=== PATIENT | male | born 1940 | race Caucasian/White ===

== ENCOUNTER 2025-08-31 09:16 | Inpatient (IN) | payer MEDICARE, MEDICAID, SELFPAY ==
[2025-08-31] VITALS (8 sets, daily range): BP systolic 145–184; BP diastolic 76–95; PULSE 71–88; RESP 17–18; TEMP 36.4–36.9; O2SAT 95–100; BMI 21.4
--- NOTE | ~2025-08-31 | US_ITS ---
LEFT LOWER EXTREMITY VENOUS DUPLEX Clinical History: swelling COMPARISON: None TECHNIQUE: Grayscale, color, duplex/spectral Doppler sonography left leg FINDINGS: Left leg common femoral, femoral, popliteal, and calf veins compressible and color Doppler patent. Normal augmentation with distal compression. No internal echoes. IMPRESSION: 1. No left leg DVT. Reviewed, dictated and finalized at location R. CUTTER IMPRESSION: 1. No left leg DVT.
--- NOTE | ~2025-08-31 | XR_ITS ---
Intraoperative images, fluoroscopy time 5 minutes 16 seconds Reviewed, dictated and finalized at location P. PMENT DETAILER
--- NOTE | ~2025-08-31 | CT_ITS ---
EXAM/PROCEDURE: CT hip LT wo con HISTORY: fracture, sclerotic lesion eval COMPARISON: None available. TECHNIQUE: Left hip CT FINDINGS: Slightly impacted obliquely oriented subcapital femoral neck fracture with slight valgus angulation. In the intertrochanteric region, benign-appearing 3.9 x 4.6 x 2.8 cm bubbly, nonexpansile partially cystic mass is present. The inferior margin of the mass is approximately 2.0 cm removed from the fracture lucency. The femoral acetabular articulation is preserved. No other fracture seen. Advanced degenerative changes in the visualized lumbar spine. Soft tissue swelling/edema and probable small hematoma in the area of the fracture with no large hematoma seen. Severe diverticular disease noted in the intrapelvic contents. IMPRESSION: 1. Mildly impacted subcapital femoral neck fracture. 2. Intertrochanteric intramedullary benign-appearing mass possibly representing chondroid lesion, enchondroma or ABC. The fracture does not directly involve this lesion, however the superior margin of the lesion is within about 2 cm of the fracture. Reviewed, dictated and finalized at location A. CE EQUIPMENT TECHNICIAN IMPRESSION: 1. Mildly impacted subcapital femoral neck fracture. 2. Intertrochanteric intramedullary benign-appearing mass possibly representing chondroid lesion, enchondroma or ABC. The fracture does not directly involve t his lesion, however the superior margin of the lesion is within about 2 cm of t he fracture.
--- NOTE | ~2025-08-31 | XR_ITS ---
EXAMINATION: XR chest 1V portable COMPARISON: No comparisons available. HISTORY: Pre-surgery FINDINGS: There are bilateral infiltrates most marked in the right upper and right lower lobes. No pneumothorax. Heart is normal size. Mediastinal and hilar contours are within normal limits. Bony thorax no acute abnormality. Miscellaneous: None Impression: Probable early pneumonia Reviewed, dictated and finalized at location P. NEERING TECHNICIAN Impression: Probable early pneumonia
--- NOTE | ~2025-08-31 | XR_ITS ---
EXAMINATION: XR hip LT 2V w AP pelvis, 08/31/2025 10:28 INFORMATION SYSTEMS SECURITY ANALYST HISTORY: LT HIP PAIN FOR 2 WKS COMPARISON: No comparisons available. Findings: There is a nondisplaced fracture of the proximal left femoral neck. Within the proximal left femur there is a large sclerotic lesion measuring 2 x 2 cm incompletely assessed, no additional lesions identified. No additional fracture. Severe degenerative changes. Soft tissues unremarkable. Impression: Fractures detailed above. Sclerotic lesion, there is a prior history of neoplasm metastasis is not excluded. Nuclear medicine bone scan suggested Reviewed, dictated and finalized at location P. RMATION SYSTEMS SECURITY ANALYST Impression: Fractures detailed above. Sclerotic lesion, there is a prior history of neoplas m metastasis is not excluded. Nuclear medicine bone scan suggested
[2025-08-31 09:47] LABS: Hematocrit 36.0 % (42.0-52.0); Hemoglobin 11.6 g/dL (14.0-18.0); Immature Granulocyte Percent A 0.7 % (0-0.5); Lymphocytes Absolute Auto 1.06 K/mm3 (0.9-3.2); Mean Corpuscular HGB Conc 32.2 g/dl (32-36); Mean Corpuscular Hemoglobin 31.7 pg (26-34); Mean Corpuscular Volume 98.4 fl (80-100); Nucleated Red Blood Cells Absolute Auto 0.000 K/mm3 (0.0-0.012); Nucleated Red Blood Cells Perc 0.0 % (0.0-0.2); Platelet Count Result 292 k/mm3 (150-375); Red Blood Count 3.66 M/mm3 (4.6-6.20); White Blood Count 12.0 K/mm3 (4.5-10.0)
--- OUTSIDE RECORDS SUMMARY | 2025-08-31 09:47 | XMS_ITS | Clinical Summary ---
Author Organization [facility] Address [address] [place] [address] Phone Care Team Providers Care Catalyst Concentration Operator Name Role Phone Felix Rosa MD Primary Care Provider + Allergies No known active allergies Medications furosemide (LASIX) 20 MG TabletIndication s:stated he uses for swelliing in feet as needed. Take 20 mg by mouth daily as needed. Indications: stated he uses for swelliing in feet as needed. Active meclizine (ANTIVERT) 25 MG Tablet Take 25 mg by mouth 3 times daily as needed. Active lisinopril (PRINIVIL, ZESTRIL) 40 MG Tablet Take 40 mg by mouth every morning. Active ferrous sulfate 325 (65 Fe) MG Tablet Take 325 mg by mouth daily. Active pantoprazole (PROTONIX) 40 MG Tablet Delayed Response Take 40 mg by mouth daily. Active atorvastatin (LIPITOR) 80 MG Tablet Take 80 mg by mouth nightly. Active aspirin EC 81 MG Tablet Delayed Response Take 81 mg by mouth daily. Active metoprolol tartrate (LOPRESSOR) 25 MG Tablet Take 25 mg by mouth 2 times daily. Active amLODIPine (NORVASC) 10 MG Tablet Take 10 mg by mouth daily. Active SODIUM BICARBONATE PO Take 1,300 mg by mouth 3 times daily. Active Multiple Vitamin (MULTIVITAMIN PO) Take by mouth daily. Active Ascorbic Acid (Vitamin C) 1000 MG Tablet Take by mouth daily. Active Cholecalciferol (VITAMIN D3 PO) Take 2,000 Units by mouth daily. Active Active Problems No known active problems Immunizations Immunization Administration Dates Next Due Covid-19, Mrna, Lnp-s, Pf, 3 0 Mcg/0.3 Ml Dose ([employer]) 08/04/2021,01/03/2021,12/06/2020 Family History Medical History Relation Name Comments Cancer Mother breast Relation Name Status Comments Father Mother Social History Tobacco Use Types Packs/Day Years Used Date Smoking Tobacco: Former Cigarettes 1 Q uit: 1979 Smokeless Tobacco: Never Alcohol Use Standard Drinks/Week Comments Not Currently 0 (1 standard drink = 0.6 oz pur e alcohol) Sex and Gender Information Value Date Recorded Sex Assigned at Not on file Legal Sex Male 8:11 PM CDT Gender Identity Not on file Sexual Orientation Not on file Last Filed Vital Signs Vital Sign Reading Time Taken Comments Blood Pressure 133/89 12/08/2021 11:02 AM [employer] Pulse 68 12/08/2021 11:02 AM [employer] Temperature 36 C (96.8 F) 12/08/2021 11:02 AM [employer] Respiratory Rate 16 12/08/2021 11:02 AM [employer] Oxygen Saturation 97% 12/08/2021 11:02 AM [employer] Inhaled Oxygen Concentration - - Weight 95.3 kg (210 lb) 12/08/2021 9:49 AM [employer] Height 193 cm (6' 4) 12/08/2021 9:49 AM [employer] Body Mass Index 25.56 12/08/2021 9:49 AM [employer] Plan of Treatment Health Maintenance Due Date Last Done Comments Hepatitis C Virus (HCV) Screening 1940 Varicella Immunization (1 of 2 - 13+ 2-dose series) 12[birth year]28/1953 Medicare Initial AWV [id number] 12/09/2004 Respiratory Syncytial Virus (RSV) Immunization (Adult) (1 - 1-dose 75+ series) 2013 Influenza Immunization (#1) 06/11/202507/11, 07/02/2020, 07/02/2020, Additional history exists SARS-COV-2 Immunization (2024- season) 2025 08/04/2021, 01/03/2021, 12/06/2020 DTaP/Tdap/Td Immunization Discontinued 01/14/2017 TdaP Immunization Completed 01/14/2017 Pneumococcal Immunization (50+ years) Completed 09/12/2019, 01/14/2017 Zoster Immunization Completed 11/14/2019, 9 Hepatitis B Immunization Aged Out No longer eligible based on patient's age to complete this topic Human Papillomavirus (HPV) Immunization Aged Out No longer eligible based on patient's age to complete this topic Meningococcal Immunization (ACWY) Aged Out No longer eligible based on patient's age to complete this topic Rotavirus Immunization Aged Out No lo nger eligible based on patient's age to complete this topic Medical Devices Implanted Type Area Microbial Specialist Device Identifier Shelf Expiration Date Model / Serial / Lot [id number] Implanted:Qty: 1 on 09/29/2021 by Felix Mitchell MD at [facility] Right: Eye Thien Thien 08/23/2024 [id number] / [id number] / [id number] Left Intraocular Lens Implanted:Qty: 1 on 12/08/2021 by Felix Mitchell MD at [facility] Left: Eye [employer] [facility] 09/21/2024 [id number] / [id number] / [id number] [place] [address] MEDICARE [facility] Care Teams Catalyst Concentration Operator Relationship Specialty Start Date End Date Felix Rosa MD [address] [facility] [address] [place] [address] PCP - General Endocrinology 09/29/21
--- OUTSIDE RECORDS SUMMARY | 2025-08-31 09:47 | XMS_ITS | Clinical Summary ---
Author Organization [facility] Address [address] [place] [address] Care Team Providers Care Biology Tutor Name Role Phone Felix Rosa MD Unavailable [phone] Felix Rosa MD Primary Care Provider + Harriett Ernandez PT Unavailable Unavailable Medina Ha PTA Unavailable Unavailable Allergies No known active allergies Medications multivitamin capsule Take 1 capsule by mouth daily Active acetaminophen (TYLENOL) 500 mg tabletIndicatio ns:Pain Take 2 tablets (1,000 mg total) by mouth every 6 (six) hours 30 tablet 02/08/20 21 Active ferrous sulfate 325 mg (65 mg of elemental iron) tabletIndicatio ns:Iron Deficiency Anemia Take 1 tablet (325 mg total) by mouth daily with breakfast Active aspirin 81 mg enteric coated tablet TAKE 1 TABLET BY MOUTH EVERY DAY. DO NOT STARTUNTIL. MARCH 04 30 tablet 3 10/09/20 22 Active freestyle 28 gauge lancets Test blood sugar twice daily 200 each 3 03/22/20 23 Active blood-glucose meter kit Use to test blood glucose 1 kit 04/02/20 23 Active atorvastatin (LIPITOR) 80 mg tablet TAKE 1 TABLET(80 MG) BY MOUTH DAILY 90 tablet 3 05/20/20 23 Active FreeStyle Lite Strips strip USE TO TEST TWICE DAILY 100 strip 3 03/14/20 24 Active furosemide (LASIX) 20 mg tablet TAKE 1 TABLET(20 MG) BY MOUTH DAILY NEEDED FOR LEG SWELLING 90 tablet 10/23/19 25 Active Additional Information Patient taking differently: As needed, Reported on 04/25/2025 memantine (NAMENDA) 5 mg tablet Take 1 tablet (5 mg total) by mouth 2 (two) times a day 90 tablet 3 03/16/20 25 Active sodium bicarbonate 650 mg tablet Take 1 tablet (650 mg total) by mouth 2 (two) times a day 180 tablet 1 05/17/20 25 026 Active lisinopriL (PRINIVIL,ZESTR IL) 40 mg tablet Take 1 tablet (40 mg total) by mouth daily 90 tablet 3 07/10/20 25 Active metoprolol tartrate (LOPRESSOR) 25 mg immediate release tablet TAKE 1 TABLET BY MOUTH TWICE DAILY 180 tablet 3 08/13/20 25 Active amLODIPine (NORVASC) 10 mg tablet TAKE 1 TABLET BY MOUTH DAILY 90 tablet 3 08/13/20 25 Active metoprolol tartrate (LOPRESSOR) 25 mg immediate release tablet TAKE 1 TABLET BY MOUTH TWICE DAILY 180 tablet 3 08/08/20 24 025 Discontinued amLODIPine (NORVASC) 10 mg tablet TAKE 1 TABLET BY MOUTH DAILY 90 tablet 3 08/08/20 24 025 Discontinued Active Problems Patient Care Coordination No te Formatting of this note migh t be different from the original. This patient has enrolled in the [facility]patient Program ([facility]). Assigned [facility] Hr Assistant and Phone: Lilly Bradley/[phone]. Date Enrolled in Program: April 26, 2018. 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 Continue with memantine 5 BID. Agree with adult day care. Reconnect with JORDAN/ Radha Taveras.to discuss: --Compassionate allowance dx, disability --Medicaid application, memory care Provided X&Y dialogue article. Memory loss 11/10/2022 Overview (11/10/2022): check labs, SLUMS 10, consult neurology Assessment & Plan (01/25/2023 3:45 PM CDT): Dx: Dementia with Lewy Bodies Already not taking Quetiapine, Donepezil, Memantine Restart Memantine at 5mg every night. Will plan to increase every week to 10mg twice daily. Check Head CT Check TSH, fT4 Agitation 11/10/2022 Overview (11/10/2022): check labs, SLUMS 10, consult neurology Unspecified sequelae of cerebral infarction 04/12 Difficulty balancing 03/17/2021 Impaired cognition 03/17/2021 Leukocytosis 02/11/2021 Gastrointestinal hemorrhage 02/11/2021 Overview (02/12/2021): Added automatically from request for surgery [id number] At risk for venous thromboembolism (VTE) 021 Overview (03/17/2021): Problem added by Discern Expert Rule: EBN_VTERISKPROB_3 Acute pain due to trauma 02/03/2021 Closed fracture of right hip 02/02/2021 Metabolic acidosis 09/02/2018 Renal osteodystrophy 09/02/2018 Anemia in stage 4 chronic kidney disease 018 Coronary artery disease invo lving [place] coronary artery of [place] heart without angina pectoris 05/24/2018 Abnormal chest x-ray 04/24/2018 Assessment & Plan (04/27/2018 8:04 AM CDT): - Possible lung nodule noted on CXR as OSH, read as difficult to exclude lung nodule vs atlectasis - Given smoking history patient likely candidate for Chest CT lung screening - Can be pursued as outpatient Assessment & Plan (04/25/2018 12:21 PM CDT): - Possible lung nodule noted on CXR as OSH, read as difficult to exclude lung nodule vs atlectasis - Given smoking history patient likely candidate for Chest CT lung screening - Can be pursued as outpatient Assessment & Plan (04/24/2018 10:15 PM CDT): - Possible lung nodule noted on CXR as OSH. Will repeat PA/lat here NSTEMI (non-ST elevated myocardial infarction) 0 04/23/2018 Assessment & Plan (04/27/2018 8:01 AM CDT): -LHC yesterday with 90% LPL lesion s/p VIDAL x1. -Will see if patients insurance covers brillinta. If not will reload with plavix and continue 75mg qday -EKG with 1st degree AV block, subsequent EKG with PVCs, but no significant ST elevations/depressions -Troponin peaked at 10->9 In patient with typical angina and multiple risk factors for CAD -No further chest pain since admission -Cardiology consulted appreciate [facility]'s -Continue ASA, metoprolol Assessment & Plan (04/26/2018 10:17 AM CDT): EKG with 1st degree AV block, subsequent EKG with PVCs, but no significant ST elevations/depressions Troponin peaked at 10->9 In patient with typical angina and multiple risk factors for CAD -No further chest pain since admission -Cardiology consulted appreciate recc's -Plan for [facility] today -Continue to monitor on telemetry -Continue ASA, metoprolol and heparin gtt. SL nitro PRN for chest pain, though he has not required any since admission Assessment & Plan (04/25/2018 12:01 PM CDT): EKG with 1st degree AV block, subsequent EKG with PVCs, but no significant ST elevations/depressions Troponin peaked at 10->9 In patient with typical angina and multiple risk factors for CAD -Cardiology consulted and will cath this admission -Continue to monitor on telemetry -Continue ASA, metoprolol and heparin gtt. SL nitro PRN for chest pain, though he has not required any since admission Assessment & Plan (04/27/2018 12:45 PM CDT): Patient presented with unstable angina in the context of exertional chest pain not relieved by rest but with sublingual nitroglycerin. His history is c/w ACS, now with a downtrending troponin from 10.25 to 9.04. Given this patient's age and history of diabetes with extensive prior smoking history, this patient has a high pretest probability of a coronary event. Currently patient is chest pain-free. [facility] 04/27 with 90% LPL s/p VIDAL x1 - ASA indefinitely - OK with Brilinta if insurance covers, otherwise Plavix - Touch base with renal for following contrast induced nephropathy as outpatient, may need labs in a few days - Schedule follow up cardiology appointment at the [facility] for discharge, thank you for the consultation Assessment & Plan (04/24/2018 10:14 PM CDT): - Elevated troponin with typical anginal pain that resolved with nitro. JOANIE 5 (RFs, age, ASA, severe angina, + biomarker) - No current CP, s/s CHF, electrical instability - Cont ASA, statin, beta brandon, and heparin gtt. PRN SLNG for CP - Trend trops and EKG - Accepted by Cards, c/s in the AM for [facility]. Cont hydration. NPO @ AR Assessment & Plan (04/23/2018 10:27 PM CDT): Chest pain completely resolved after 2 nitroglycerin. Troponins trending up from 0.02 to 0.21. Continue to monitor. EKG showed sinus rhythm with a first-degree AV block. Will start patient on a heparin drip. Will consult Cardiology. Will continue nitropaste 1 in q.6 hours. Patient does not have headache. Will start patient on 81 mg aspirin daily and change statin to Lipitor. Will check a fasting lipid panel. Continue monitor on tele. Essential hypertension 04/23/2018 Assessment & Plan (04/27/2018 8:04 AM CDT): - Previously on lisinopril and amlodipine - Will cont amlodipine and titrate beta brandon. - Hold BRUNA-I given acute on chronic kidney injury. Likely can be started in outpatient setting with renal follow up Assessment & Plan (04/26/2018 10:20 AM CDT): - Previously on lisinopril and amlodipine - Will cont amlodipine and titrate beta brandon. - Hold BRUNA-I given acute on chronic kidney injury Assessment & Plan (04/25/2018 12:02 PM CDT): - Previously on lisinopril and amlodipine - Will cont amlodipine and titrate beta brandon. - Hold BRUNA-I given unclear if current creatinine represents MIMI on CKD Assessment & Plan (04/25/2018 11:03 AM CDT): Currently normotensive on his home regimen. - Management per primary team Assessment & Plan (04/24/2018 10:10 PM CDT): - Previously on lisinopril and amlodipine - Will cont amlodipine and titrate beta brandon. Hold BRUNA-I Assessment & Plan (04/23/2018 10:21 PM CDT): Currently normotensive. Will continue amlodipine with hold parameters. Will hold lisinopril for now until we can confirm creatinine is stable. Continue to monitor. HLD (hyperlipidemia) 04/23/2018 Assessment & Plan (04/27/2018 8:04 AM CDT): - Continue atorvastatin Assessment & Plan (04/26/2018 10:20 AM CDT): - Continue atorvastatin Assessment & Plan (04/24/2018 10:10 PM CDT): - Home simva changed to atorvastatin 80mg Assessment & Plan (04/23/2018 10:20 PM CDT): Patient was on Zocor which we will discontinue. Will start Lipitor. Will check a fasting lipid panel. CRD (chronic renal disease), stage IV 04/23/2018 Assessment & Plan (04/27/2018 8:02 AM CDT): Acute on chronic CKD in setting of HTN and DM2 - Last Cr in [facility] system shows Cr of 1.18 in 2010 and now presents with 2.3 on admission - Renal u/s with echogenic kidneys consistent with parenchymal disease - Renal consulted for guidance given need for LHC. Pt was prehydrated w/ 1cc/kg NS, given NAC prior to and after LHC - Cr mildly improved from 2.3 on admission to 2.25 today - Will set up outpatient renal follow up Assessment & Plan (04/26/2018 10:19 AM CDT): Acute on chronic CKD in setting of HTN and DM2 - Last Cr in [facility] system shows Cr of 1.18 in 2010 and now presents with 2.3 on admission - Renal u/s with echogenic kidneys consistent with parenchymal disease - Renal consulted for guidance given need for LHC - Will prehydrate w/ 1cc/kg NS, also will give NAC prior to and after LHC - Appreciate renal recc's Assessment & Plan (04/25/2018 11:58 AM CDT): - Patient reports being told by PCP that his kidney function was abnormal about a year ago - Last Cr in [facility] system shows Cr of 1.18 in 2010 and now presents with 2.3 on admission - CKD likely 2/2 diabetes and hypertension though both seem reasonably well controlled - Denies frothy urine, decrease urination or sediment. - Renal u/s with echogenic kidneys consistent with parenchymal disease - Will attempt to see if there are any OSH from the past year that show baseline creatinine closer to his presenting Cr, which would help us know if this is an MIMI on CKD -Will likely require pre-hydration prior to cath pending cardiology final recc's Assessment & Plan (04/25/2018 11:02 AM CDT): Unknown baseline renal function presenting with creatinine 2.31 (last 1.18 in 2010) with most recent kidney ultrasound (04/25/2018) revealed echogenic kidneys c/w parenchymal disease - If possible, please obtain any prior lab results - Will continue to monitor his trend Assessment & Plan (04/24/2018 10:09 PM CDT): - Known abnormal kidney function x 1 year. Given comorbidities, likely HTN/DM related but no work up yet - UA, pro/Cr, renal US. Not reported any urinary symptoms. - Will need to ensure adequate volume prior to any cath considerations - I&Os Assessment & Plan (04/23/2018 10:21 PM CDT): Patient was recently referred to a derrick boat lever operator at [place] by his PCP. His 1st appointment is May 06. Patient is not sure what his creatinine is normally. Will hold lisinopril until we are able to confirm that creatinine is stable. Normocytic anemia 04/23/2018 Assessment & Plan (04/27/2018 8:03 AM CDT): - Unclear etiology, may be related to renal disease though CKD not particularly longstanding - Possibly mixed picture given mildly iron deficient, but ferritin of 51. - B12, wnl, MCV wnl. If never had c-scope pt should undergo screening. If he has already previously had normal c-scope, he is out of window for screening Assessment & Plan (04/24/2018 10:11 PM CDT): - Unclear etiology, may be related to renal disease though CKD not particularly longstanding - Will check iron studies, B12 to r/o mixed picture (unlikely given RDW). No bleeding, up to date on colonoscopy Assessment & Plan (04/23/2018 10:22 PM CDT): Patient denies any bleeding anywhere. Suspect may be related to kidney disease. Will continue to monitor. Type 2 diabetes mellitus, [facility] current use of insulin 04/23/2018 Assessment & Plan (07/18/2020 1:20 PM CDT): Continue diet Assessment & Plan (04/27/2018 8:02 AM CDT): Previously on metformin, but has been discontinued several months ago, and is currently diet controlled HgbA1C 6.4 - Cont accuchecks and SSI - Cont Diabetic diet and exercise Assessment & Plan (04/26/2018 10:19 AM CDT): Previously on metformin, but has been discontinued several months ago, and is currently diet controlled HgbA1C 6.4 - Cont accuchecks and SSI - Diabetic diet after NPO dc'd Assessment & Plan (04/25/2018 12:01 PM CDT): Previously on metformin, but has been discontinued several months ago, and is currently diet controlled HgbA1C 6.4 - Cont accuchecks and SSI - Diabetic diet Assessment & Plan (04/25/2018 11:02 AM CDT): Patient has longstanding DM2 which is well controlled with out insulin or oral hypoglycemics. His last A1c was 6.4%. - Management per primary team Assessment & Plan (04/24/2018 10:09 PM CDT): - Only ever on orals. A1c 6.4 - Cont accuchecks and SSI Assessment & Plan (04/23/2018 10:24 PM CDT): Patient states he used to be on metformin however his PCP discontinued due to his kidneys. He is unsure what he is on currently but it is a pill. Will place patient on a low-dose sliding scale and continue to monitor. Encounters Date Type Department Care Team Description 08/29/2025 Orders Only [facility] NE[facility] Scanning, Provider 08/16/2025 Telephone [facility] [address] [place] [id number] Felix Rosa MD 08/02/2025 12:34 PM CDT - 08/02/2025 11:59 PM CDT Hospital Encounter [facility] [address] [place] [id number] Coronary artery disease involving [place] coronary artery of [place] heart without angina pectoris Discharge Disposition: Discharge to home or self care 07/31/2025 Telephone [facility] [address] [facility] [place] [address] Guru Zuniga MSW 07/09/2025 Telephone [facility] [address] [place] [address] Shanell Taveras RN 07/04/2025 Orders Only [facility] [address] [place] [address] Sugey West MD PhD Coronary artery disease involving [place] coronary artery of [place] heart without angina pectoris (Primary Dx) 06/19/2025 Telephone [facility] [address] [place] [address] Shanell Taveras, RN 06/18/2025 Telephone [facility] [address] [place] [address] Shanell Taveras, RN 06/18/2025 Telephone [facility] [address] [place] [address] Shanell Taveras, RN 06/18/2025 Telephone [facility] [address] [place] [address] Shanell Taveras, RN 06/06/2025 Telephone [facility] [address] [place] [address] Shanell Taveras, RN 06/06/2025 Telephone [facility] [address] [place] [address] Shanell Taveras, RN from Last 3 Months Immunizations Immunization Administration Dates Next Due Influenza, Quad, Adjuvantate d, Intramuscular 07/02/2020 Influenza, Quadrivalent, Spl it, Intramuscular 11/13/2016 Influenza, Quadrivalent, Spl it, Preservative Free, Intramuscular 07/28/2017 Influenza, Trivalent, High D ose, Split, Preservative Free, Intramuscular 07/31/2019 Influenza, Trivalent, IM (MDV) 07/15/2015,2013,09/11/2013 Pfizer SARS-CoV-2 Monovalent Vaccination (12+ Yrs) PURPLE 08/04/2021,01/03/2021,12/06/2020 ZOSTER Recombinant 11/14/2019,08/18/2019 Surgical History Surgery Date Site/Laterality Comments REPLACEMENT TOTAL KNEE BILATERAL 10/11/2010 - 10/10/2011 Bilateral CARDIAC STENT PLACEMENT 04/10/2018 - 05/10/2018 COLONOSCOPY PARTIAL HIP ARTHROPLASTY 10/11/2020 - 10/10/2021 N/A Medical History Medical History Date Comments Hypertension Hyperlipidemia Diabetes mellitus Chronic kidney disease Type 2 diabetes mellitus Coronary artery disease NSTEMI (non-ST elevated myocardial infarction) ( HCC) Bilateral lower extremity edema Family History Medical History Relation Name Comments Breast cancer Daughter Cancer Mother Breast cancer Sister Anesthesia problems Neg Hx Relation Name Status Comments Daughter Mother Sister Social History Tobacco Use Types Packs/Day Years Used Date Smoking Tobacco: Former Cigarettes 2 30 1 956 - 10/11/1984 Smokeless Tobacco: Never Tobacco Cessation:Counseling Given: Not Answered Alcohol Use Standard Drinks/Week Comments No 0 (1 standard drink = 0.6 oz pur e alcohol) Social Connection and Isolation Panel Answer Date Recorded In a typical week, how many times do you talk on the phone with family, friends, or neighbors? More than three times a week 02/12/2021 How often do you get togethe r with friends or relatives? More than three times a week 02/12/2021 How often do you attend chur ch or jewish services? Never 02/12/2021 Do you belong to any clubs o r organizations such as mandaen groups, unions, fraternal or athletic groups, or school groups? No 02/12/2021 How often do you attend meet ings of the clubs or organizations you belong to? 1 to 4 times per year 02/12/2021 Are you , , di vorced, , never , or living with a partner? 02/12/2021 AUDIT-C Answer Date Recorded Q1: How often do you have a drink containing alc ohol? Never 02/03/2021 Average Number of Drinks Not on file 021 Q3: How often do you have si x or more drinks on one occasion? Never 02/03/2021 Overall Financial Resource Strain (CARDIA) Answe r Date Recorded How hard is it for you to pa y for the very basics like food, housing, medical care, and heating? Not hard at all 02/12/2021 PHQ-2 Answer Date Recorded PHQ-2 Total Score (If total score is 3 or more points, staff should administer the PHQ-9) 0 02/14/2021 PRAPARE - Transportation Answer Date Re corded In the past 12 months, has l ack of transportation kept you from medical appointments or from getting medications? No 02/2021 In the past 12 months, has l ack of transportation kept you from meetings, work, or from getting things needed for daily living? 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 Gender Identity Not on file Sexual Orientation Not on file Last Filed Vital Signs Vital Sign Reading Time Taken Comments Blood Pressure 140/85 04/25/2025 11:13 AM CDT Pulse 62 04/25/2025 11:13 AM CDT Temperature 37 C (98.6 F) 07/12/2024 2:27 PM CDT Respiratory Rate 20 07/12/2024 2:27 PM CDT Oxygen Saturation 98% 04/25/2025 11:13 AM CDT Inhaled Oxygen Concentration - - Weight 76.2 kg (168 lb) 04/25/2025 11:13 AM CDT Height 193 cm (6' 4) 04/25/2025 11:13 AM CDT Body Mass Index 20.45 04/25/2025 11:13 AM CDT Plan of Treatment Health Maintenance Due Date Last Done Comments Albumin Creatinine Ratio, Urine 1938 Dilated Eye Exam 1938 Foot Exam 1938 DTaP/Tdap/Td Vaccine (1 - Tdap) 1949 Hepatitis B Screening 1956 Pneumococcal vaccine 65+ (1 of 2 - PCV) 1957 Well Visit 65+ 12/28/2003 Depression Screening 02/11/2022 02/11/2021 Fall Risk Assessment 02/18/2022 02/18/2021 Covid-19 Vaccine (4 - 2024-2 6 season) 2025 08/04/2021, 01/03/2021, 12/06/2020 Influenza Vaccine (#1) 2025 , 07/31/2019, 07/28/2017, Additional history exists Lipid Panel 07/20/2025 07/20/2024, 10/11, 03/31/2021, Additional history exists Hemoglobin A1C 10/26/2025 04/25/2025, 07/11, 01/18/2024, Additional history exists eGFR 04/20/2026 04/20/2025, 110 05/2024, 07/20/2024, Additional history exists Zoster Vaccine Completed 11/14/2019, 08/18/2019 Medical Devices Implanted Type Area Flour Worker Device Identifier Shelf Expiration Date Model / Serial / Lot Hardware Bilater al: Knee [employer] [id number] Synergy 2.5mm 16mm 144cm Radiopaque 1 Access Port Inflation Lumen - [id number] Implanted:Qty: 1 on 04/26/2018 by Dinesh Gomes MD at [facility] [employer] Elena 11/29/2018 [id number] / / [id number] [employer] 6191-1-010 Simplex P Radiopaque Full Dose Cement Bone Sterile - [id number] Implanted:Qty: 2 on 02/03/2021 by Roel Talley MD at [facility] Right: Hip [employer] 10/10/2021 6191-1-010 / / [id number] [employer] Nep[employer]/Richco/Ort ho [id number] Prep-Im Plug [place] Sponge Suction Hip Kit Thr Latex Free - [id number] Implanted:Qty: 1 on 02/03/2021 by Roel Talley MD at [facility] Right: Hip [employer]O rtho [id number] / / Description:Cement restricto r x1 [employer] [id number] Versys Legacy Unipolar Hip Femoral +7mm 12/14 Adapter Head - [id number] Implanted:Qty: 1 on 02/03/2021 by Roel Talley MD at [facility] Right: Hip [employer] [id number] 10/27/2030 [id number] / / [id number] [employer] [id number] Versys 11mm Cemented Hip Distal Centralizer Stem Pmma Sterile - [id number] Implanted:Qty: 1 on 02/03/2021 by Roel Talley MD at [facility] Right: Hip [employer] [id number] 11/16/2030 [id number] / / [id number] [employer] [id number] Versys Legacy 52mm Unipolar Endoprosthetic Hip 12/14 Head Femoral - [id number] Implanted:Qty: 1 on 02/03/2021 by Roel Talley MD at [facility] Right: Hip [employer] [id number] 11/25/2030 [id number] / / [id number] [employer] [id number] Versys Ld/Fx 12mm 125mm Cemented Hip 38mm Offset Stem Femoral - [id number] Implanted:Qty: 1 on 02/03/2021 by Roel Talley MD at [facility] Right: Hip [employer] [id number] 12/01/2030 [id number] / / [id number] Procedures Procedure Name Priority Date/Time Associated Diagnosis Comments SCAN - LABS 08/29/2025 ECG 12-LEAD Routine 08/02/2025 1:19 PM CDT Coronary artery disease involving [place] coronary artery of [place] heart without angina pectoris POCT HEMOGLOBIN A1C Routine 04/25/2025 1 1:15 AM CDT Type 2 diabetes mellitus without complication, without long-term current use of insulin (HCC) EGFR Routine 04/20/2025 3:57 PM CDT CRD (chronic renal disease), stage IV (HCC) Gross hematuria Frequent urination Metabolic acidosis Chronic kidney disease, unspecified CKD stage POCT LIPID PANEL Routine 07/20/2024 11:5 8 AM CDT Type 2 diabetes mellitus without complication, without long-term current use of insulin (HCC) Mixed hyperlipidemia from Last 3 Months or Most Recently Relevant to Health Maintenance Results * SCAN - LABS (08/29/2025) us Provider Scanning Final Result * ECG 12 lead (08/02/2025 1:19 PM CDT) 08/02/2025 12:4 3 PM CDT Narrative [facility] - 08/02/2025 2:43 PM CDT Vent Rate: 53 bpm RR Interval: 1114 msec [place] Interval: 330 msec QRS Duration: 94 msec QT Interval: 420 msec QTC Interval: 404 msec P-R-T [place]: 60 - -49 - 70 degrees IMPRESSION: SINUS BRADYCARDIA WITH FIRST DEGREE AV BLOCK LEFT ANTERIOR FASCICULAR BLOCK [QRS AXIS <= -45, QR IN I, RS IN II] ABNORMAL ECG Electronically Signed By: Farhan Robert MD us Sugey West MD PhD ECG ORDERABLES Final Resul t [facility] [employer] [facility] * (ABNORMAL) POCT hemoglobin A1c (04/25/2025 11:15 AM CDT) Hemoglobin A1C, POC 6.4(A) 4.0 - 5.6 % Blood 04/25/2025 11:1 5 AM CDT Felix Rosa MD POINT OF CARE TEST ORDER WALI Final Result * (ABNORMAL) eGFR (04/20/2025 3:57 PM CDT) eGFR 27(L) >=60 mL/min/1. 73 m2 Comment: Interpretive Data Reference Interval Normal >/= 90 mL/min/1.73m2 Mildly decreased* 60 - 89 mL/min/1.73m2 Mildly to moderately decreased 45 - 59 mL/min/1.73m2 Moderately to severely decreased 30 - 44 mL/min/1.73m2 Severely decreased 15 - 29 mL/min/1.73m2 Kidney Failure < 15 mL/min/1.73m2 *Relative to young adult level Estimated glomerular filtration rate is determined by the 2020 CKD-EPI equation recommended by the National Kidney Foundation (A Unifying Approach to GFR Estimation: Recommendations of the NKF-ASK Task Force on Reassessing the Inclusion of Race in Diagnosing Kidney Disease, JASN 2020). The CKD-EPI equation should not be used for patients with unstable renal function and has not been validated in children and those over 70. Current interpretive data was last reviewed 2021. Blood 04/20/2025 3:57 PM CDT 04/20/2025 4:20 PM CDT us Cmaacho Sewell MD LAB BLOOD ORDERABLES Final R esult [facility] [address] [facility] Department [place] [address] * POCT lipid panel (07/20/2024 11:58 AM CDT) Cholesterol, POC 196 mg/dL HDL, POC 34 mg/dL Triglycerides, POC 165 mg/dL LDL Cholesterol POC 130 mg/dL Chol/HDL Ratio, POC 5.8 Non-HDL Cholesterol, POC 163 mg/dL Cholesterol Total, POC 196 mg/dL Capillary blood 07/20/2024 1 1:58 AM CDT us Felix Rosa MD POINT OF CARE TEST ORDER WALI Final Result from Last 3 Months or Most Recently Relevant to [place] [address] MEDICARE [facility] MEDICARE SUPPLEMENT MEDICARE FORMERLY [facility] MEDICARE [employer] MEDICARE SUPPLEMENT MEDICARE [facility] MEDICARE [facility] [place] [address] Advance Directives For more information, please contact: [phone] * Full Code (Latest Code Status on File) Date Activated Date Inactivated Comments 02/12/2021 3:15 AM 02/18/2021 7:27 PM * Full Code Date Activated Date Inactivated Comments 02/03/2021 5:20 PM 02/07/2021 8:43 PM * Full Code Date Activated Date Inactivated Comments 02/03/2021 1:37 AM 02/03/2021 5:20 PM * Full Code Date Activated Date Inactivated Comments 04/24/2018 9:45 PM 04/27/2018 3:39 PM * Full Code Date Activated Date Inactivated Comments 04/24/2018 9:45 PM 04/24/2018 9:45 PM Care Teams Biology Tutor Relationship Specialty Start Date End Date Felix Rosa MD PCP - General 01/20/18 Felix Rosa MD Referring Physician Endocrinology Diabetes & Metabolism 01/20/18 Harriett Ernandez, PT Physical Therapist Physical Therapy 01/21/18 Medina Ha CALL CENTER TRAINER Mri Technician Physical Therapy 01/28/18
--- OUTSIDE RECORDS SUMMARY | 2025-08-31 09:47 | XMS_ITS | Encounter Summary ---
Author Organization [facility] Address [address] [place] [address] Phone Care Team Providers Care Animal Biologist Name Role Phone Felix Rosa MD Unavailable [phone] Felix Rosa MD Primary Care Provider + Harriett Ernandez PT Unavailable Unavailable Medina Ha PTA Unavailable Unavailable Encounter Details Date Type Department Care Team (Latest Contact Info) Description 08/29/2025 Orders Only [facility] Scanning, Provider Social History Tobacco Use Types Packs/Day Years Used Date Smoking Tobacco: Former Cigarettes 2 30 1 956 - 10/11/1984 Smokeless Tobacco: Never Alcohol Use Standard Drinks/Week Comments No 0 [...] often do you attend chur ch or restoration services? 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 Gender Identity Not on file Sexual Orientation Not on file documented as of this encounter Plan of Treatment Not on file documented as of this encounter Procedures Procedure Name Priority Date/Time Associated Diagnosis Comments SCAN - LABS 08/29/2025 documented in this encounter Results * SCAN - LABS (08/29/2025) us Provider Scanning Final Result documented in this encounter Visit Diagnoses Not on filedocumented in this encounter Care Teams Animal Biologist Relationship Specialty Start Date End Date Felix Rosa MD PCP - General 01/20/18 Felix Rosa MD Referring Physician Endocrinology Diabetes & Metabolism 01/20/18 Harriett Ernandez, PT Physical Therapist Physical Therapy 01/21/18 Medina Ha, CORPORATE ASSOCIATE ATTORNEY Gun Synchronizer Physical Therapy 01/28/18 documented as of this encounter
--- OUTSIDE RECORDS SUMMARY | 2025-08-31 09:47 | XMS_ITS | Encounter Summary ---
Author Organization [facility] Address [address] [place] [address] Phone Care Team Providers Care Knee Bolter Name Role Phone Felix Rosa MD Primary Care Provider + Encounter Details Date Type Department Care Team (Late st Contact Info) Description 11/27/2021 Transcribe Orders [facility] Preop/Pacu II [address] [place] [address] Gustavo Ceron MD [address] [place] [address] Pre-op testing (Primary Dx) Social History Tobacco Use Types Packs/Day Years Used Date Smoking Tobacco: Former Cigarettes 1 Q uit: 1980 Smokeless Tobacco: Never Alcohol Use Standard Drinks/Week Comments Not Currently 0 (1 standard drink = 0.6 oz pur e alcohol) Sex and Gender Information Value Date Recorded Sex Assigned at Not on file Legal Sex Male 8:11 PM CDT Gender Identity Not on file Sexual Orientation Not on file COVID-19 Exposure Response Date Recorded In the last month, have you been in contact with someone who was confirmed or suspected to have Coronavirus / COVID-19? No / Unsure 11/27/2021 10:32 AM BOX MACHINE OPERATOR documented as of this encounter Functional Status documented as of this encounter Mental Status * Question Answer Entry Date Author Weight 3360 11/27/2021 10:50 AM BOX MACHINE OPERATOR Shi Anthony RN documented in this encounter Plan of Treatment Not on file documented as of this encounter Results * SARS-COV-2 BY MOLECULAR (12/05/2021 12:43 PM BOX MACHINE OPERATOR) SARSCOV2 NOT DETECTED (Referen ce Range for this test is Not Detected ) [facility] THERMOFISHER FAST DX 12/06/2021 8:59 AM BOX MACHINE OPERATOR [facility] Comment:This test was perfor med by a RT-PCR method. Other NASOPHARYNGEAL STRUCTURE / Unknown Non-Phlebotomy Collection / Unknown 12/05/2021 12:43 PM BOX MACHINE OPERATOR 12/05/2021 1:54 PM BOX MACHINE OPERATOR Narrative [facility] - 12/06/2021 8:59 AM BOX MACHINE OPERATOR Authorized Fact Sheets about this test for providers and patients are available at: https://www.fda.gov/medical-devices/faplojqtg-vjuvibthfn-mbtrfoq-devices/emergen -us e-authorizations Result On License Of [facility] us Gustavo Ceron MD MICROBIOLOGY - GENERAL ORDERA BLES Final Result [facility] [address] [place] [address], documented in this encounter Visit Diagnoses Diagnosis Pre-op testing- Primary Preoperative examination, unspecified documented in this encounter Care Teams Knee Bolter Relationship Specialty Start Date End Date Felix Rosa MD [address] [place] [id number] PCP - General Endocrinology 09/29/21 documented as of this encounter
--- OUTSIDE RECORDS SUMMARY | 2025-08-31 09:48 | XMS_ITS | Encounter Summary ---
Author Organization [facility] Healthcare Address [address] [place] [address] Care Team Providers Care Coronary Care Unit Nurse Name Role Phone Felix Rosa MD Unavailable [phone] Felix Rosa MD Primary Care Provider + Harriett Ernandez PT Unavailable Unavailable Meidna Ha PTA Unavailable Unavailable Lilly Bradley RN Unavailable [phone] Encounter Details Date Type Department Care Team (Late st Contact Info) Description 04/26/2018 Documentation [facility] Case Management [address] [place] [address] Jackelyn Pond RN Social History Tobacco Use Types Packs/Day Years Used Date Smoking Tobacco: Former Cigarettes 2 20 0 10/11/1964 - 10/11/1984 Smokeless Tobacco: Never Alcohol Use Standard Drinks/Week Comments No 0 (1 standard drink = 0.6 oz pur e alcohol) Sex and Gender Information Value Date Recorded Sex Assigned at Not on file Legal Sex Male 1:47 AM GRAB JACK MAN Gender Identity Not on file Sexual Orientation Not on file documented as of this encounter Functional Status * Question Answer Date of Assessment Author BP Location Left arm 04/27/2018 11:20 AM FRANCOIST Mariana Hart RN BP Method Automatic 04/27/2018 11:20 AM Mariana Medeiros RN MAP (mmHg) 79 04/27/2018 11:20 AM Mariana Medeiros RN * Sanchez Fall Risk Question Answer Date of Assessment Author History of Falling 0 04/27/2018 7:00 AM Mariana Dyer RN Secondary Diagnosis 15 04/27/2018 7:00 AM Mariana Seo RN Ambulatory Aids 0 04/27/2018 7:00 AM Mariana Fernandez RN Intravenous Therapy/Heparin/Saline Lock 20 04/27/2018 7:00 AM Ofelia Dyer RN Gait/Transferring 0 04/27/2018 7:00 AM Mariana Dyer RN Mental Status 0 04/27/2018 7:00 AM Mariana Medeiros RN * Manuelito Scale Question Answer Date of Assessment Author Sensory Perceptions 4 04/27/2018 8:20 AM Mariana Seo RN Moisture 4 04/27/2018 8:20 AM Mariana Malloy RN Activity 3 04/27/2018 8:20 AM Mariana Malloy RN Mobility 3 04/27/2018 8:20 AM Mariana Malloy RN Nutrition 3 04/27/2018 8:20 AM Mariana Malloy RN Friction and Shear 3 04/27/2018 8:20 AM Mariana Dyer RN Manuelito Scale Score 20 04/27/2018 8:20 AM Mariana Dyer RN * Fall Risk Interventions Question Answer Date of Assessment Author All Low Fall Interventions Applied Yes 04/27/2018 7:00 AM Maraina Dyer RN All Moderate Fall Interventions Applied No 04/27/2018 7:00 AM Mariana Dyer RN All Moderate Fall Risk Interventions EXCEPT: Gait belt at bedside 04/27/2018 7:00 AM Mariana Dyer RN Additional Interventions Applied Over-bed table on non-exit side;Exit bed on strong/preferred side 04/26/2018 9:00 AM Chloé Fernandez RN Reason For Exception(s) Patient able to ambulate on own 04/27/2018 7:00 AM Mariana Dyer RN * B.M.A.T. - Bedside Mobility Assessment Tool for Nurses Question Answer Date of Assessment Author Is patient able to participate in the BMAT? Yes 04/27/2018 7:00 AM Usman Dyer RN BMAT Level Level 4 - Green 04/27/2018 7:00 AM Mariana Fernandez RN * Integumentary Question Answer Date of Assessment Author Skin Color Appropriate for ethnicity 04/27/2018 8:20 AM Mariana Dyer RN Skin Condition/Temp Dry;Warm 04/27/2018 8 :20 AM Mariana Dyer RN Skin Integrity Bruising 04/27/2018 8:20 AM Mariana Dyer RN Skin Turgor Non-tenting 04/27/2018 8:20 AM Mariana Dyer RN Integumentary Additional Assessments Yes-Manuelito 04/27/2018 8:20 AM Mariana Dyer RN Integumentary (WDL) WDL 04/27/2018 8 :20 AM Mariana Dyer RN * Wound (LDAs) Question Answer Date of Assessment Author Type of Wound (LDA) Surgical site 04/27/2018 8:20 AM Mariana Navas RN * Question Answer Date of Assessment Author BP Location Left arm 04/27/2018 11:20 AM Mariana Medeiros RN BP Method Automatic 04/27/2018 11:20 AM Mariana Medeiros RN * Question Answer Date of Assessment Author Bed In Lowest Position Yes 04/27/2018 11:00 A M Mariana Dyer RN Bed Wheels Locked Yes 04/27/2018 11:00 AM Mariana Dyer RN * Fall Risk Interventions Question Answer Date of Assessment Author All Low Fall Interventions Applied Yes 04/27/2018 7:00 AM Mariana Dyer RN All Moderate Fall Interventions Applied No 04/27/2018 7:00 AM Mariana Dyer RN All Moderate Fall Risk Interventions EXCEPT: Gait belt at bedside 04/27/2018 7:00 AM Mariana Dyer RN Additional Interventions Applied Over-bed table on non-exit side;Exit bed on strong/preferred side 04/26/2018 9:00 AM CDT Chloé Pereyra RN Reason For Exception(s) Patient able to ambulate on own 04/27/2018 7:00 AM CDT Mariana Hampton RN * Question Answer Date of Assessment Author Hygiene Bathed with chlorhex idine gluconate (CHG) 04/26/2018 12:00 AM FRANCOIST Marie Ayala RN Hygiene Level of Assistance Minimal assist 04/26/2018 12:00 AM CDT Marie Ayala RN * RN Oversight of Sitter Question Answer Date of Assessment Author RN Safety Check No unsafe behaviors observed, safe environment maintained 04/27/2018 7:00 AM FRANCOIST Mariana Hampton RN Sitter Not indicated 04/27/2018 7:00 AM CDT Mariana Hart RN * Nutrition Question Answer Date of Assessment Author Feeding Level of Assistance Able to feed self 04/27/2018 7:00 AM CDT Mariana Hampton RN documented as of this encounter Mental Status * Question Answer Entry Date Author Neuro (WD) [facility] 04/26/2018 3:29 PM CDT Aleah Livingston RN * Question Answer Entry Date Author Neuro (WD) [facility] 04/27/2018 8:20 AM CDT Mariana Davis RN documented in this encounter Plan of Treatment Not on file documented as of this encounter Visit Diagnoses Not on filedocumented in this encounter Additional Health Concerns Infection Onset Date Last Indicated Resolved Time COVID: Suspected 02/13/2021 02/13/2021 02/13/2021 2:08 AM CDT documented as of this encounter Care Teams Coronary Care Unit Nurse Relationship Specialty Start Date End Date Felix Rosa MD PCP - General 01/20/18 Felix Rosa MD Referring Physician Endocrinology Diabetes & Metabolism 01/20/18 Harriett Ernandez PT Physical Therapist Physical Therapy 01/21/18 Medina Ha, [facility] Dress Finisher Physical Therapy 01/28/18 Lilly Bradley, RN [facility] Outpatient Tile Layer 04/26/18 06/27/18 documented as of this encounter
--- OUTSIDE RECORDS SUMMARY | 2025-08-31 09:48 | XMS_ITS | Encounter Summary ---
Author Organization [facility] Healthcare Address [address] [place] [address] Care Team Providers Care Polystyrene Molding Machine Tender Name Role Phone Felix Rosa MD Unavailable [phone] Felix Rosa MD Primary Care Provider + Harriett Enrandez PT Unavailable Unavailable Medina Ha PTA Unavailable Unavailable Lilly Bradley RN Unavailable [phone] Reason for Referral * Consultation (Routine) - Closed Specialty Diagnoses / Procedures Referred By Rajwinder t Referred To Contact Nephrology Diagnoses Kidney function test abnormal Felix Rosa MD Phone: tel: fax: [address] [address] Referral ID Status Reason Start Date Expiration Date V isits Requested Visits Authorized [id number] Closed Specialty Services Required 04/01/2018 10/11/2019 12 12 Encounter Details Date Type Department Care Team (Late st Contact Info) Description 04/01/2018 Community Orders [facility] EpicCare Link Felix Rosa MD [address] [address] Kidney function test abnormal (Primary Dx) Social History Tobacco Use Types Packs/Day Years Used Date Smoking Tobacco: Never Assessed Sex and Gender Information Value Date Recorded Sex Assigned at Not on file Legal 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 Gender Identity Not on file Sexual Orientation Not on file documented as of this encounter Plan of Treatment Scheduled Referrals Name Type Priority Associated Diagnoses Order Schedule Ambulatory referral to Nephrology Outpatient Referral Routine Kidney function test abnormal 1 Occurrences starting 04/01/2018 until 10/01/2018 documented as of this encounter Visit Diagnoses Diagnosis Kidney function test abnormal- Primary Nonspecific abnormal results of kidney function study documented in this encounter Additional Health Concerns Infection Onset Date Last Indicated Resolved Time COVID: Suspected 02/13/2021 02/13/2021 02/13/2021 2:08 AM CDT documented as of this encounter Care Teams Polystyrene Molding Machine Tender Relationship Specialty Start Date End Date Felix Rosa MD PCP - General 01/20/18 Felix Rosa MD Referring Physician Endocrinology Diabetes & Metabolism 01/20/18 Harriett Ernandez, PT Physical Therapist Physical Therapy 01/21/18 Medina Ha, PRIMARY TEACHER Clinical Physician Assistant Physical Therapy 01/28/18 Lilly Braldey, RN [facility] Outpatient Souvenir And Novelty Maker 04/26/18 06/27/18 documented as of this encounter
--- OUTSIDE RECORDS SUMMARY | 2025-08-31 09:48 | XMS_ITS | Patient Health Record ---
Author Organization [facility] Address [address] [id number] Care Team Providers Care Hospice Clinical Marketer Name Role Phone DR. RASHAD TELLEZ Primary Care Provider Allergies Allergen (clinical drug ingredient) Drug/Non Drug Allergy documented on EMR Reaction Allergy Type Onset Date Status No Known Drug Allergy Unknown Drug Allergy Active Reason For Referral No Information Medications Medication SIG (Take, Route, Frequency, Duration) Notes Start Date End Date Status Sodium Bicarbonate 650 MG Tablet 1 tablet Orally twice a day Active amLODIPine Besylate 10 MG Tablet 1 tablet Orally Once a day Active Atorvastatin Calcium 80 MG Tablet 1 tablet Orally Once a day Active Aspirin 81 MG Tablet Chewable 1 tablet Orally Once a day Active Furosemide 20 MG Tablet 1 tablet Orally Once a day Active Ferrous Sulfate 325 (65 Fe) MG Tablet Delayed Release 1 tablet Orally daily Active Memantine HCl 5 MG Tablet 1 tablet Orall y twice a day Active Lisinopril 40 MG Tablet 1 tablet Orally Once a day Active Metoprolol Tartrate 25 MG Tablet 1 tablet with food Orally Twice a day Active Social History Tobacco Use: Social History Observation Description Date Details (start date - stop date) Unknown if ever smoked NA - NA Social History Tobacco Use: Social Info Question Answer Notes Tobacco Control (Standard) Tobacco use: Unknown if emerald r smoked Problems Problem Type SNOMED Code ICD Code Onset Dates Problem Status W/U Status Risk Notes Problem Type II diabetes mellitus without complication (048986995) Type 2 diabetes mellitus without complications (E11.9) Active confirmed Problem Hyperlipidemia (46000489) Hyperlipidemia, unspecified (E78.5) Active confirmed Problem Essential hypertension (27902707) Essential (primary) hypertension (I10) Active confirmed Problem Systolic heart failure (158284873) Unspecified systolic (congestive) heart failure (I50.20) Active confirmed Problem Atherosclerosis (06654386) Unspecified atherosclerosis (I70.90) Active confirmed Problem Dementia (75610412) Dementia, unspecified dementia severity, unspecified dementia type, unspecified whether behavioral, psychotic, or mood disturbance or anxiety (F03.90) Active confirmed Encounters Encounter Location Date Provider Diagnosis [facility] [address] [address] 08/31/2025 RASHAD TELLEZ [facility] [address] [address] 08/28/2025 RASHAD TELLEZ [facility] [address] [place] [address] 08/28/2025 RASHAD TELLEZ [facility] [address] [place] [address] 08/29/2025 RASHAD TELLEZ Plan Of Treatment Next Appt Details Provider Name:Ailyn aWlker , 09/04/2025 11:45:00 AM, [address] [place] [address], [phone], Insurance Providers Payer Name Payer Address Payer Phone Subscriber Number Group Number Insured Name Patient Relationship to Insured Coverage Start Date Coverage End Date [place] [address] [address] [place], [place] [id number] Katt Irvin Self - patient is the insured Medicare of [place] [address] [place] [id number] [phone] [id number] Katt Irvin Self - patient is the insured Medical (General) History Medical History History ICD Code Hyperlipidemia, unspecified E78.5 Dementia, unspecified leida ia severity, unspecified dementia type, unspecified whether behavioral, psychotic, or mood disturbance or anxiety F03.90 Essential (primary) hypertension I10 Unspecified systolic (congestive) heart failure I50.20 Unspecified atherosclerosis I70.90 Type 2 diabetes mellitus without complic ations E11.9 Surgical History Surgery Date(Month/Year) CARDIAC STENT PLACEMENT COLONOSCOPY PARTIAL HIP ARTHROPLASTY REPLACEMENT TOTAL KNEE BILATERAL
[2025-08-31 09:56] LABS: Alanine Aminotransferase 28 U/L (6-50); Albumin Level 4.4 g/dL (3.5-5.1); Alkaline Phosphatase 79 U/L (38-126); Anion Gap 9 mmol/L (4-12); Aspartate Amino Transferase 47 U/L (17-59); Bilirubin,Total 1.0 mg/dL (0.2-1.3); Blood Urea Nitrogen 43 mg/dL (9-20); Calcium 9.5 mg/dL (8.4-10.2); Carbon Dioxide 21 mmol/L (22-30); Chloride 112 mmol/L (98-107); Estimated CRCL calculation 19 ml/min; Estimated Glomerular Filt Rate 22; Glucose 128 mg/dL (65-110); Potassium 3.9 mmol/L (3.4-5.0); Sodium 142 mmol/L (137-145); Total Protein 7.4 g/dL (6.3-8.2)
[2025-08-31] MEDS: MORPHINE SULFATE (*CRX) 4 MG/ML INJ 2 MG IV PUSH ×4 (09:58→22:15)
--- NOTE | 2025-08-31 10:18 | ED.LOWEXIN ---
HPI - Extremity Injury (Lower) General Chief Complaint: Extremity Injury, Lower Stated Complaint: left leg pain Time Seen by Provider: 08/31/25 09:19 History of Present Illness HPI Narrative: Patient is an 84-year-old male who presents ER with left hip pain. Patient has dementia and cannot provide any history but has discomfort with flexion and external rotation. No reports of trauma from his skilled nursing. Patient is in good spirits and quite talkative. Related Data Allergies Allergy/AdvReac Type Severity Reaction Status Date / Time No Known Allergies Allergy Verified 08/31/25 15:30 Review of Systems Review of Systems: ROS unobtainable: Yes unobtainable due to mental status PMFSH Past Medical History Medical History (Updated 08/31/25 @ 17:39 by Keith Horton MD) Congestive heart failure Hypertension Hyperlipidemia Dementia Family History Family History (Updated 08/31/25 @ 15:31 by Rebecca Xiao RN) Other Unknown family medical history Social History Social History Smoking status: Unknown if ever smoked Alcohol intake: unknown Substance use: unknown Substance use type: unknown Spiritual care concerns: No Exam Narrative: GENERAL: Well-appearing, well-nourished, and in no acute distress. HEAD: Normocephalic, atraumatic. ENT: Mucous membranes moist. CHEST: Clear to auscultation. No respiratory distress. HEART: Regular rate and rhythm. Normal peripheral pulses. ABDOMEN: Soft, nontender, nondistended. EXTREMITIES: Normal range of motion of right lower extremity. Left lower extremity with pain with range of motion at left hip. 2+ edema left lower extremity. No cellulitis. SKIN: Warm, dry, no rash. NEURO: Alert and oriented x2. PSYCH: Normal mood and affect. Course Course Emergency Course: PATIENT WITH SUBCAPITAL FRACTURE OF THE LEFT FEMUR. CT WITHOUT PATHOLOGIC LESION. FAMILY EDUCATED ON DIAGNOSIS. PATIENT WILL BE ADMITTED TO HOSPITALIST SERVICE FOR FURTHER TREATMENT AND ORTHOPEDIC SURGERY HAS BEEN CONSULTED FOR OPERATIVE REPAIR. Vital Signs Vital signs: Vital Signs Temperature 97.6 F 08/31/25 09:16 Pulse Rate 71 08/31/25 09:16 Respiratory Rate 18 08/31/25 09:16 Blood Pressure 168/78 H 08/31/25 09:16 Pulse Oximetry 99 08/31/25 09:16 Oxygen Delivery Room Air 08/31/25 09:16 Temperature 98.0 F 08/31/25 15:53 Pulse Rate 88 08/31/25 15:53 Respiratory Rate 18 08/31/25 15:53 Blood Pressure 180/78 H 08/31/25 15:53 Pulse Oximetry 99 08/31/25 15:53 Oxygen Delivery Room Air 08/31/25 15:43 MDM - Extremity Injury (Lower) Lab Data Attestation: I reviewed the patient's lab results. 08/31/25 09:38 08/31/25 09:38 Labs: Lab Results 08/31/25 Range/Units 09:38 WBC 12.0 H (4.5-10.0) K/mm3 RBC 3.66 L (4.6-6.20) M/mm3 Hgb 11.6 L (14.0-18.0) g/dL Hct 36.0 L (42.0-52.0) % MCV 98.4 (80-100) fl MCH 31.7 (26-34) pg MCHC 32.2 (32-36) g/dl RDW 13.7 (11.5-14.5) % Plt Count 292 (150-375) k/mm3 MPV 9.5 (7.4-10.4) fl Immature Gran % (Auto) 0.7 H (0-0.5) % Neut % (Auto) 83.2 H (45.5-73.1) % Lymph % (Auto) 8.8 L (18.3-44.2) % [place] % (Auto) 6.8 (2.6-8.5) % Eos % (Auto) 0.3 (0-4.4) % Baso % (Auto) 0.2 (0.2-1.2) % Lymph # (Auto) 1.06 (0.9-3.2) K/mm3 [place] # (Auto) 0.8 H (0.1-0.6) K/mm3 Eos # (Auto) 0.0 (0-0.3) K/mm3 Baso # (Auto) 0.0 (0.0-0.1) K/mm3 Abs Immat Gran (auto) 0.08 H (0.00-0.031) K/mm3 Absolute Neuts (auto) 10.0 H (1.3-6.7) K/mm3 Absolute Nucleated RBC 0.000 (0.0-0.012) K/mm3 Nucleated RBC % 0.0 (0.0-0.2) % Sodium 142 (137-145) mmol/L Potassium 3.9 (3.4-5.0) mmol/L Chloride 112 H (98-107) mmol/L Carbon Dioxide 21 L (22-30) mmol/L Anion Gap 9 (4-12) mmol/L BUN 43 H (9-20) mg/dL Creatinine 2.73 H (0.7-1.3) mg/dL Estim Creat Clear Calc 19 ml/min Estimated GFR 22 L (59 - ) Glucose 128 H (65-110) mg/dL Calcium 9.5 (8.4-10.2) mg/dL Total Bilirubin 1.0 (0.2-1.3) mg/dL AST 47 (17-59) U/L ALT 28 (6-50) U/L Alkaline Phosphatase 79 (38-126) U/L Total Protein 7.4 (6.3-8.2) g/dL Albumin 4.4 (3.5-5.1) g/dL Imaging Data Radiologist's impression: ITS Impressions Hip/Pelvis X-Ray 08/31/25 10:39 Impression: Fractures detailed above. Sclerotic lesion, there is a prior history of neoplasm metastasis is not excluded. Nuclear medicine bone scan suggested Venous Doppler Study 08/31/25 10:39 IMPRESSION: 1. No left leg DVT. Hip CT 08/31/25 12:02 IMPRESSION: 1. Mildly impacted subcapital femoral neck fracture. 2. Intertrochanteric intramedullary benign-appearing mass possibly representing chondroid lesion, enchondroma or ABC. The fracture does not directly involve this lesion, however the superior margin of the lesion is within about 2 cm of the fracture. Discharge Plan Discharge Clinical Impression: Closed subcapital fracture of neck of left femur Patient Disposition: Still a Patient Condition: Stable
--- NOTE | 2025-08-31 15:04 | WPCEDHO ---
ED Hand Off Checklist All vitals saved:yes IV Site documented:yes All med administrations documented:yes Triage Note Triage Note Patient to the ED via EMS from 08/31/25 09:[address] with complaints of left upper leg pain that began this morning. Unknown of injury. No noticeable bruising or deformity. Patient is unable to bare weight at this time and is normally able to ambulate with walker or cane. Patient is A&Ox2 baseline with history of dementia . Allergies No Known Allergies Allergy (Unverified 06/28/18 11:34) Administered/Completed Medications Discontinued Medications Morphine Sulfate (Morphine Sulfate (*Crx) 4 Mg/Ml Inj) 2 mg IV PUSH ONCE ONE Stop: 08/31/25 09:28 Last Admin: 08/31/25 09:58 Dose: 2 mg Documented By: PETRONA Comments: 0.5mls Interventions/Assessments IV / Saline Lock, Insert Start: 08/31/25 09:13 Freq: Status: Active Protocol: Document 08/31/25 09:57 PETRONA (Rec: 08/31/25 09:57 PETRONA [id number]) IV Assessment Peripheral Access Right Forearm IV Catheter Access Initiated IV Insertion Date 08/31/25 IV Insertion Time 09:57 Catheter Gauge 22 IV Insertion 1 Attempts Ultrasound Used for No Placement IV Site Assessment WNL IV Care and WNL,Access Locked Maintenance Last Vital Signs Temperature 97.6 F 08/31/25 09:16 Pulse Rate 80 08/31/25 15:04 Respiratory Rate 18 08/31/25 15:04 Pulse Oximetry 97 08/31/25 15:04 Blood Pressure 164/76 H 08/31/25 15:04 Blood Pressure Mean 105 08/31/25 15:04 Oxygen Delivery Room Air 08/31/25 09:16 Weight 75.9 kg 08/31/25 09:16 Last Result - Abnormals Only WBC 12.0 K/mm3 (4.5-10.0) H 08/31/25 09:38 RBC 3.66 M/mm3 (4.6-6.20) L 08/31/25 09:38 Hgb 11.6 g/dL (14.0-18.0) L 08/31/25 09:38 Hct 36.0 % (42.0-52.0) L 08/31/25 09:38 Immature Gran % (Auto) 0.7 % (0-0.5) H 08/31/25 09:38 Neut % (Auto) 83.2 % (45.5-73.1) H 08/31/25 09:38 Lymph % (Auto) 8.8 % (18.3-44.2) L 08/31/25 09:38 [place] # (Auto) 0.8 K/mm3 (0.1-0.6) H 08/31/25 09:38 Abs Immat Gran (auto) 0.08 K/mm3 (0.00-0.031) H 08/31/25 09:38 Absolute Neuts (auto) 10.0 K/mm3 (1.3-6.7) H 08/31/25 09:38 Chloride 112 mmol/L (98-107) H 08/31/25 09:38 Carbon Dioxide 21 mmol/L (22-30) L 08/31/25 09:38 BUN 43 mg/dL (9-20) H 08/31/25 09:38 Creatinine 2.73 mg/dL (0.7-1.3) H 08/31/25 09:38 Estimated GFR 22 (59-) L 08/31/25 09:38 Glucose 128 mg/dL (65-110) H 08/31/25 09:38
--- NOTE | 2025-08-31 15:19 | ADMGEN ---
This patient, Katt Bailey, was admitted to 2 Medical Room 244-. Patient/family oriented to hospital policies and general routines including ID bracelet, bed and alarms, visiting hours, pain management, procedures, bathroom and other care routines, personal items, smoking policy, room service/diet, and visiting hours. Information on how to activate the Rapid Response Team has been discussed. Patient/Family are encouraged to report perceived risks to care and to ask questions if they do not understand what they are told or what they should do.
--- NOTE | 2025-08-31 20:26 | PM.IMHP ---
H&P: HPI History of Present Illness Date/Time: 08/31/25 20:26 Chief Complaint: Left leg pain Narrative: 84-year-old male past medical history of dementia, CHF, hypertension, hyperlipidemia presents to the ED on 08/31/2025 from [facility] with complaints of left upper leg pain. Patient unable to provide any history due to dementia but does have pain with ambulation and manipulation of his left leg. Unknown if patient has fallen. No obvious deformity or bruising to leg and is still able to bare weight. Ambulatory with cane or walker at baseline. Initial vital signs 168/78, HR 71, respirations 18, afebrile and 99% on room air WBC 12, RBC 3.66, hemoglobin 11.6, chloride 112, carbon dioxide 21, BUN 43, creatinine 2.73 with GFR 22 Left lower extremity Doppler negative for DVT. Left hip and pelvis x-ray reads nondisplaced fracture of the proximal left femoral neck. Within the proximal left femur there is a large sclerotic lesion. Left hip CT reads mildly impacted subcapital femoral neck fracture. Intratrochanteric intramedullary benign-appearing mass, possibly chondroid lesion, enchondroma or ABC. The fracture does not directly involve this lesion, however the superior margin of the lesion is within about 2 cm of the fracture. Review of Systems Review of Systems: ROS unobtainable: Yes unobtainable due to mental status [facility] Past Medical History Medical History (Updated 09/01/25 @ 02:07 by Ramila Schultz APRN) Congestive heart failure Hypertension Hyperlipidemia Dementia Family History Family History (Updated 08/31/25 @ 15:31 by Rebecca Xiao RN) Other Unknown family medical history Social History Social History Smoking status: Unknown if ever smoked Alcohol intake: unknown Substance use: unknown Substance use type: unknown Spiritual care concerns: No Meds Home Medications and Allergies Home Medications ?Medication ?Instructions ?Recorded ?Confirmed ?Type acetaminophen 500 mg capsule 500 mg PO Q6H PRN pain 08/31/25 08/31/25 History amlodipine 10 mg tablet 10 mg PO DAILY 08/31/25 08/31/25 History aspirin 81 mg tablet,delayed 81 mg PO DAILY 08/31/25 08/31/25 History release (Adult Aspirin Regimen) atorvastatin 80 mg tablet 80 mg PO DAILY 08/31/25 08/31/25 History ferrous sulfate 325 mg (65 mg 325 mg PO DAILY 08/31/25 08/31/25 History iron) tablet (FeroSul) furosemide 20 mg tablet 20 mg PO DAILY 08/31/25 08/31/25 History lisinopril 40 mg tablet 40 mg PO DAILY 08/31/25 08/31/25 History memantine 10 mg tablet 5 mg PO BID 08/31/25 08/31/25 History metoprolol tartrate 25 mg tablet 25 mg PO BID 08/31/25 08/31/25 History multivitamin (Daily Multi-Vitamin 1 tablet PO DAILY 08/31/25 08/31/25 History tablet) sodium bicarbonate 650 mg tablet 650 mg PO BID 08/31/25 08/31/25 History Allergies Allergy/AdvReac Type Severity Reaction Status Date / Time No Known Allergies Allergy Verified 08/31/25 15:30 Vital Signs Vital Signs - 24 hr 08/31/25 09:16 08/31/25 12:42 08/31/25 15:04 Temperature 97.6 F Pulse Rate 71 80 80 Respiratory Rate 18 18 18 Blood Pressure 168/78 H 184/95 H 164/76 H Pulse Oximetry 99 100 97 Oxygen Delivery Room Air 08/31/25 15:05 08/31/25 15:43 08/31/25 15:53 Temperature 98.2 F 98.0 F Pulse Rate 81 88 Respiratory Rate 18 18 Blood Pressure 164/78 H 180/78 H Pulse Oximetry 95 95 99 Oxygen Delivery Room Air 08/31/25 20:13 Temperature 98.5 F Pulse Rate 83 Respiratory Rate 17 Blood Pressure 145/79 H Pulse Oximetry 97 Oxygen Delivery Exam Narrative: GENERAL: non-toxic appearing, in no acute distress. HEAD: Normocephalic, atraumatic. EYES: PERRLA. Conjunctivae clear. NOSE: Normal no drainage. THROAT: Pharynx clear, no exudate. NECK: Trachea midline. No adenopathy, no masses. RESPIRATORY: Airway patent, respirations nonlabored. CTA. CARDIOVASCULAR: Regular rate and rhythm GASTROINTESTINAL: Abdomen is soft and nontender. No organomegaly. Bowel sounds normal in all quadrants. GENITOURINARY: Defer MUSCULOSKELETAL: Left lower extremity pain with range of motion at the hip. 2+ edema left lower extremity. SKIN: Warm, dry, normal color. NEURO: A&O X1. Speech clear PSYCHIATRIC: Normal interaction H&P: Results Labs Labs: Short CBC 08/31/25 Range/Units 09:38 WBC 12.0 H (4.5-10.0) K/mm3 Hgb 11.6 L (14.0-18.0) g/dL Hct 36.0 L (42.0-52.0) % Plt Count 292 (150-375) k/mm3 BMP 08/31/25 09:38 Sodium 142 Potassium 3.9 Chloride 112 H Carbon Dioxide 21 L BUN 43 H Creatinine 2.73 H Glucose 128 H Calcium 9.5 Liver Function 08/31/25 Range/Units 09:38 Total Bilirubin 1.0 (0.2-1.3) mg/dL AST 47 (17-59) U/L ALT 28 (6-50) U/L Alkaline Phosphatase 79 (38-126) U/L Albumin 4.4 (3.5-5.1) g/dL Assessment and Plan Assessment and plan (1) Closed subcapital fracture of neck of left femur: Code(s): S72.012A - Unspecified intracapsular fracture of left femur, initial encounter for closed fracture Status: Acute Assessment and Plan: Patient presents on 08/31 with complaints of left leg pain. Unable to provide history due to dementia. Patient likely had an unwitnessed fall -orthopedic consult -NPO in anticipation for surgery -pain control with acetaminophen, hydrocodone, morphine (2) Dementia: Code(s): F03.90 - Unspecified dementia, unspecified severity, without behavioral disturbance, psychotic disturbance, mood disturbance, and anxiety Status: Chronic Assessment and Plan: Patient A&O x1. Frequent attempts to get out of bed. -olanzapine 5 mg ODT once unsuccessful. -olanzapine 5 mg IM once -continue Namenda -consider patient sitter (3) Congestive heart failure: Code(s): I50.9 - Heart failure, unspecified Status: Chronic Assessment and Plan: Not in acute exacerbation. No previous echo available for review -continue 20 mg Lasix daily (4) Hyperlipidemia: Code(s): E78.5 - Hyperlipidemia, unspecified Status: Chronic Assessment and Plan: Continue atorvastatin (5) Hypertension: Qualifiers: Hypertension type: primary hypertension Qualified Code(s): I10 - Essential (primary) hypertension Code(s): I10 - Essential (primary) hypertension Status: Chronic Assessment and Plan: Continue amlodipine, lisinopril, and metoprolol Plan Diet: NPO GI prophylaxis: NA DVT prophylaxis: SCDs lines/drains: PIV Fluids: NA Code status: Full
[2025-08-31] MEDS: OLANZapine ODT DISPERTAB 5 MG PO (20:35)
[2025-08-31] MEDS: METOPROLOL TARTRATE 25 MG TABLET PO (23:13)
[2025-08-31] MEDS: SODIUM BICARBONATE TAB 650 MG TABLET PO (23:13)
[2025-08-31] MEDS: MEMANTINE 5 MG TABLET PO (23:14)
[2025-08-31] MEDS: OLANZapine 5 MG, WATER, STERILE FOR INJECTION 2.1 ML IM (23:14)
[2025-09-01] VITALS (8 sets, daily range): BP systolic 157–177; BP diastolic 67–72; PULSE 82–117; RESP 18; TEMP 36.6–36.9; O2SAT 94–98
[2025-09-01 05:05] LABS: Hematocrit 32.0 % (42.0-52.0); Hemoglobin 10.3 g/dL (14.0-18.0); Immature Granulocyte Percent A 0.3 % (0-0.5); Lymphocytes Absolute Auto 1.15 K/mm3 (0.9-3.2); Mean Corpuscular HGB Conc 32.2 g/dl (32-36); Mean Corpuscular Hemoglobin 31.8 pg (26-34); Mean Corpuscular Volume 98.8 fl (80-100); Nucleated Red Blood Cells Absolute Auto 0.000 K/mm3 (0.0-0.012); Nucleated Red Blood Cells Perc 0.0 % (0.0-0.2); Platelet Count Result 218 k/mm3 (150-375); Red Blood Count 3.24 M/mm3 (4.6-6.20); White Blood Count 7.2 K/mm3 (4.5-10.0)
[2025-09-01 05:27] LABS: Anion Gap 7 mmol/L (4-12); Blood Urea Nitrogen 34 mg/dL (9-20); Calcium 8.6 mg/dL (8.4-10.2); Carbon Dioxide 21 mmol/L (22-30); Chloride 112 mmol/L (98-107); Estimated CRCL calculation 21 ml/min; Estimated Glomerular Filt Rate 25; Glucose 103 mg/dL (65-110); Potassium 3.5 mmol/L (3.4-5.0); Sodium 140 mmol/L (137-145)
--- NOTE | 2025-09-01 08:42 | P.PNIM_ITS ---
Progress Note: A&P Assessment and Plan (1) Closed subcapital fracture of neck of left femur: Code(s): S72.012A - Unspecified intracapsular fracture of left femur, initial encounter for closed fracture Status: Acute Assessment and Plan: Patient presents on 08/31 with complaints of left leg pain. Unable to provide history due to dementia. Patient likely had an unwitnessed fall -orthopedic consult -NPO in anticipation for surgery -pain control with acetaminophen, hydrocodone, morphine Patient acceptable for planned surgery (2) Dementia: Code(s): F03.90 - Unspecified dementia, unspecified severity, without behavioral disturbance, psychotic disturbance, mood disturbance, and anxiety Status: Chronic Assessment and Plan: Patient A&O x1. Frequent attempts to get out of bed. -olanzapine 5 mg ODT once unsuccessful. -olanzapine 5 mg IM once -continue Namenda -consider patient sitter (3) Congestive heart failure: Code(s): I50.9 - Heart failure, unspecified Status: Chronic Assessment and Plan: Not in acute exacerbation. No previous echo available for review -continue 20 mg Lasix daily (4) Hyperlipidemia: Code(s): E78.5 - Hyperlipidemia, unspecified Status: Chronic Assessment and Plan: Continue atorvastatin (5) Hypertension: Qualifiers: Hypertension type: primary hypertension Qualified Code(s): I10 - Essential (primary) hypertension Code(s): I10 - Essential (primary) hypertension Status: Chronic Assessment and Plan: Continue amlodipine, lisinopril, and metoprolol (6) CKD (chronic kidney disease) stage 4, GFR 15-29 ml/min: Code(s): N18.4 - Chronic kidney disease, stage 4 (severe) Status: Acute Assessment and Plan: Creatinine baseline runs mid 2s currently baseline Plan Mild chronic anemia Diet: NPO GI prophylaxis: NA DVT prophylaxis: SCDs lines/drains: PIV Fluids: NA Code status: Full Subjective Date/time seen: 09/01/25 08:42 Interval history: Patient presented with left hip pain no reported history of trauma. Underlying dementia. X-ray finding left femur subcapital fracture. Orthopedic surgery evaluation pending. Patient restless and agitated review of system could not be completed Review of Systems Review of Systems: ROS unobtainable: Yes unobtainable due to mental status Exam Narrative: GENERAL: non-toxic appearing, in no acute distress. Restless HEAD: Normocephalic, atraumatic. EYES: PERRLA. Conjunctivae clear. NECK: Trachea midline. No adenopathy, no masses. RESPIRATORY: Airway patent, respirations nonlabored. CTA. CARDIOVASCULAR: Regular rate and rhythm GASTROINTESTINAL: Abdomen is soft and nontender. No organomegaly. Bowel sounds normal in all quadrants. GENITOURINARY: Defer MUSCULOSKELETAL: Left lower extremity pain with range of motion at the hip. 1 + edema left lower extremity. SKIN: Warm, dry, normal color. NEURO: Restless moving all extremities except for left leg PSYCHIATRIC: Restless Objective Data Vital Signs Vital Signs: Vital Signs - 24 hr 08/31/25 09:16 08/31/25 12:42 08/31/25 15:04 Temperature 97.6 F Pulse Rate 71 80 80 Respiratory Rate 18 18 18 Blood Pressure 168/78 H 184/95 H 164/76 H Pulse Oximetry 99 100 97 Oxygen Delivery Room Air 08/31/25 15:05 08/31/25 15:43 08/31/25 15:53 Temperature 98.2 F 98.0 F Pulse Rate 81 88 Respiratory Rate 18 18 Blood Pressure 164/78 H 180/78 H Pulse Oximetry 95 95 99 Oxygen Delivery Room Air 08/31/25 20:00 08/31/25 20:13 08/31/25 23:13 Temperature 98.5 F Pulse Rate 83 83 Respiratory Rate 17 Blood Pressure 145/79 H Pulse Oximetry 97 Oxygen Delivery Room Air Intake/Output Intake/Output: Intake & Output 08/29/25 08/30/25 08/31/25 09/01/25 23:59 23:59 23:59 23:59 Intake Total 240 0 Output Total 250 Balance -10 0 Meds/Results Medications: Active Medications Generic Name Dose Route Start Last Admin Trade Name Freq PRN Reason Stop Dose Admin Acetaminophen 650 mg 08/31/25 13:37 Acetaminophen 325 Mg Tablet PO Q4H PRN Mild Pain (1-3) or Fever Hydrocodone Bitart/Acetaminophen 1 tab 08/31/25 13:37 Hydrocodone/Acetaminophen (*Crx) 5-325 Mg Tablet PO Q4H PRN Pain Rated 4-6 Amlodipine Besylate 10 mg 09/01/25 09:00 Amlodipine Besylate 10 Mg Tablet PO DAILY [facility] Atorvastatin Calcium 80 mg 09/01/25 09:00 Atorvastatin 40 Mg Tablet PO DAILY [facility] Ferrous Sulfate 325 mg 09/01/25 09:00 Ferrous Sulfate 325 Mg Tablet PO DAILY [facility] Furosemide 20 mg 09/01/25 09:00 Furosemide 20 Mg Tablet PO DAILY [facility] Lisinopril 40 mg 09/01/25 09:00 Lisinopril 20 Mg Tablet PO DAILY [facility] Memantine 5 mg 08/31/25 23:00 08/31/25 23:14 Memantine 5 Mg Tablet PO 5 mg Q12HR ROSALIA Administration Metoprolol Tartrate 25 mg 08/31/25 23:00 08/31/25 23:13 Metoprolol Tartrate 25 Mg Tablet PO 25 mg Q12HR ROSALIA Administration Morphine Sulfate 2 mg 08/31/25 13:37 08/31/25 22:15 Morphine Sulfate (*Crx) 4 Mg/Ml Inj IV PUSH 2 mg Q2H PRN Administration Pain Rated 7-10 Multivitamins Therapeutic 1 tablet 09/01/25 09:00 Multivitamins Therapeutic Tab (*Bkc) PO DAILY [facility] Ondansetron HCl 4 mg 08/31/25 13:37 Ondansetron Inj 4 Mg/2 Ml Vial IV PUSH Q4H PRN Nausea Sodium Bicarbonate 650 mg 08/31/25 23:00 08/31/25 23:13 Sodium Bicarbonate Tab 650 Mg Tablet PO 650 mg BID ROSALIA Administration Radiology Results: ITS Impressions Hip/Pelvis X-Ray 08/31/25 10:39 Impression: Fractures detailed above. Sclerotic lesion, there is a prior history of neoplasm metastasis is not excluded. Nuclear medicine bone scan suggested Venous Doppler Study 08/31/25 10:39 IMPRESSION: 1. No left leg DVT. Hip CT 08/31/25 12:02 IMPRESSION: 1. Mildly impacted subcapital femoral neck fracture. 2. Intertrochanteric intramedullary benign-appearing mass possibly representing chondroid lesion, enchondroma or ABC. The fracture does not directly involve this lesion, however the superior margin of the lesion is within about 2 cm of the fracture. Labs Labs: Laboratory Results - last 24 hr 08/31/25 09/01/25 09:38 04:56 WBC 12.0 H 7.2 RBC 3.66 L 3.24 L Hgb 11.6 L 10.3 L Hct 36.0 L 32.0 L MCV 98.4 98.8 MCH 31.7 31.8 MCHC 32.2 32.2 RDW 13.7 13.5 Plt Count 292 218 MPV 9.5 9.5 Immature Gran % (Auto) 0.7 H 0.3 Neut % (Auto) 83.2 H 67.1 Lymph % (Auto) 8.8 L 15.9 L [place] % (Auto) 6.8 10.0 H Eos % (Auto) 0.3 6.0 H Baso % (Auto) 0.2 0.7 Lymph # (Auto) 1.06 1.15 [place] # (Auto) 0.8 H 0.7 H Eos # (Auto) 0.0 0.4 H Baso # (Auto) 0.0 0.1 Abs Immat Gran (auto) 0.08 H 0.02 Absolute Neuts (auto) 10.0 H 4.9 Absolute Nucleated RBC 0.000 0.000 Nucleated RBC % 0.0 0.0 Sodium 142 140 Potassium 3.9 3.5 Chloride 112 H 112 H Carbon Dioxide 21 L 21 L Anion Gap 9 7 BUN 43 H 34 H Creatinine 2.73 H 2.49 H Estim Creat Clear Calc 19 21 Estimated GFR 22 L 25 L Glucose 128 H 103 Calcium 9.5 8.6 Total Bilirubin 1.0 AST 47 ALT 28 Alkaline Phosphatase 79 Total Protein 7.4 Albumin 4.4
--- NOTE | 2025-09-01 12:57 | PM.CNOR ---
Assessment and Plan Assessment and plan (1) Closed subcapital fracture of neck of left femur: Code(s): S72.012A - Unspecified intracapsular fracture of left femur, initial encounter for closed fracture Status: Acute Assessment and Plan: S/P FALL NOW WITH NON DISPLACED LEFT FEMORAL NECK FRACTURE. HE WILL NEED A PERCUTANEOUS SCREW FIXATION ONCE HE IS CLEARED BY MEDICINE. HISTORY, EXAM AND RADIOGRAPHS REVIEWED WITH THE PATIENT. REFERRING PHYSICIAN RECORDS AND IMAGES REVIEWED. CONDITION, NATURE, ETIOLOGY AND COURSE OF NATURAL HISTORY REVIEWED. CONSERVATIVE AND OPERATIVE TREATMENT OPTIONS REVIEWED WELL THE RISKS AND BENEFITS OF EACH. DISCUSSED NONOPERATIVE AND OPERATIVE TREATMENT OPTIONS WITH THE PATIENT. THE PATIENT'S QUESTIONS WERE ANSWERED. THE PATIENT DESIRES OPERATIVE TREATMENT. DISCUSSED ____PERCUTANEOUS SCREW FIXATION LEFT FEMORAL NECK FRACTURE . RISKS OF SURGERY INCLUDING BUT NOT LIMITED TO NEUROVASCULAR DAMAGE, WOUND COMPLICATIONS, BLOOD CLOT, PULMONARY EMBOLUS, STROKE, RI, ANESTHETIC RISKS UP TO AND INCLUDING WERE REVIEWED. CONTINUED PAIN AND POSSIBLE DYSFUNCTION WERE EXPLAINED. NO GUARANTEES WERE OFFERED. THE PATIENT UNDERSTANDS AND WISHES TO PROCEED. History of Present Illness HPI Consult date: 09/01/25 Chief complaint: Hip Fracture Narrative: ALONDAR HAD A FALL TO THE LEFT HIP AND NOW HE HAS A LEFT FEMORAL NECK FRACTURE WITH MINIMAL DISPLACEMENT. HE HAS MODERATE HIP PAIN. HE DENIES ANY RIGHT HIP PAIN, NECK OR BACK PAIN. HE HAS SIGNIFICANT DEMENTIA. HE HAS 0NO C/O ,OF ANY OTHER EXTREMITY OR NECK OR BACK PAIN. HISTORY, EXAM AND RADIOGRAPHS REVIEWED WITH THE PATIENT. REFERRING PHYSICIAN RECORDS AND IMAGES REVIEWED. CONDITION, NATURE, ETIOLOGY AND COURSE OF NATURAL HISTORY REVIEWED. CONSERVATIVE AND OPERATIVE TREATMENT OPTIONS REVIEWED WELL THE RISKS AND BENEFITS OF EACH. Review of Systems Review of Systems: All systems reviewed & are unremarkable except as noted in HPI and below PMFSH Past Medical History Medical History Congestive heart failure Hypertension Hyperlipidemia Dementia Family History Family History Other Unknown family medical history Social History Social History Smoking status: Unknown if ever smoked Alcohol intake: unknown Substance use: unknown Substance use type: unknown Spiritual care concerns: No Meds Home Medications and Allergies Home Medications ?Medication ?Instructions ?Recorded ?Confirmed ?Type acetaminophen 500 mg capsule 500 mg PO Q6H PRN pain 08/31/25 08/31/25 History amlodipine 10 mg tablet 10 mg PO DAILY 08/31/25 08/31/25 History aspirin 81 mg tablet,delayed 81 mg PO DAILY 08/31/25 08/31/25 History release (Adult Aspirin Regimen) atorvastatin 80 mg tablet 80 mg PO DAILY 08/31/25 08/31/25 History ferrous sulfate 325 mg (65 mg 325 mg PO DAILY 08/31/25 08/31/25 History iron) tablet (FeroSul) furosemide 20 mg tablet 20 mg PO DAILY 08/31/25 08/31/25 History lisinopril 40 mg tablet 40 mg PO DAILY 08/31/25 08/31/25 History memantine 10 mg tablet 5 mg PO BID 08/31/25 08/31/25 History metoprolol tartrate 25 mg tablet 25 mg PO BID 08/31/25 08/31/25 History multivitamin (Daily Multi-Vitamin 1 tablet PO DAILY 08/31/25 08/31/25 History tablet) sodium bicarbonate 650 mg tablet 650 mg PO BID 08/31/25 08/31/25 History Allergies Allergy/AdvReac Type Severity Reaction Status Date / Time No Known Allergies Allergy Verified 08/31/25 15:30 Vital Signs Vital Signs - 24 hr 08/31/25 15:04 08/31/25 15:05 08/31/25 15:43 Temperature 36.8 C Pulse Rate 80 81 Respiratory Rate 18 18 Blood Pressure 164/76 H 164/78 H Pulse Oximetry 97 95 95 Oxygen Delivery Room Air 08/31/25 15:53 08/31/25 20:00 08/31/25 20:13 Temperature 36.7 C 36.9 C Pulse Rate 88 83 Respiratory Rate 18 17 Blood Pressure 180/78 H 145/79 H Pulse Oximetry 99 97 Oxygen Delivery Room Air 08/31/25 23:13 09/01/25 08:00 09/01/25 08:58 Temperature Pulse Rate 83 Respiratory Rate Blood Pressure Pulse Oximetry 96 Oxygen Delivery Room Air Room Air 09/01/25 12:28 09/01/25 12:38 Temperature 36.6 C Pulse Rate 83 86 Respiratory Rate 18 Blood Pressure 157/67 H Pulse Oximetry 94 Oxygen Delivery Exam Extrem: Right lower extremity: normal to inspection, full ROM, normal capillary refill, hip/thigh Details: normal to inspection, normal ROM, crepitus and deformity; no tenderness, no swelling, ROM normal, no abrasions, no lacerations and no ecchymosis, knee Details: normal to inspection and normal ROM; no tenderness and no swelling, lower leg Details: normal to inspection and palpable cord; no tenderness and no deformity and ankle Details: normal to inspection; no cyanosis and no edema Left lower extremity: hip/thigh Details: abnormal to inspection, tenderness, swelling, abnormal ROM Details: pain with active ROM Details: with ADduction, with ABduction, with extension, with flexion, with internal rotation and with external rotation, pain with resistance Details: to ADduction, to ABduction, to extension, to flexion, to internal rotation and to external rotation and pain with passive ROM Details: with ADduction, with ABduction, with extension, with flexion, with internal rotation and with external rotation, ecchymosis, crepitus and deformity; no abrasions and no lacerations, knee Details: normal to inspection, normal ROM and knee ligament exam normal; no tenderness and no swelling, lower leg Details: normal to inspection and palpable cord, ankle Details: normal to inspection; no tenderness and no swelling and foot Details: normal capillary refill, normal to inspection, toes with normal ROM, vascular exam Details: dorsalis pedis pulse present and posterior tibial pulse present and motor-sensory exam light-touch normal; no tenderness Results Labs 09/01/25 04:56 09/01/25 04:56 Labs: Abnormal lab results 09/01/25 Range/Units 04:56 RBC 3.24 L (4.6-6.20) M/mm3 Hgb 10.3 L (14.0-18.0) g/dL Hct 32.0 L (42.0-52.0) % Lymph % (Auto) 15.9 L (18.3-44.2) % [place] % (Auto) 10.0 H (2.6-8.5) % Eos % (Auto) 6.0 H (0-4.4) % [place] # (Auto) 0.7 H (0.1-0.6) K/mm3 Eos # (Auto) 0.4 H (0-0.3) K/mm3 Chloride 112 H (98-107) mmol/L Carbon Dioxide 21 L (22-30) mmol/L BUN 34 H (9-20) mg/dL Creatinine 2.49 H (0.7-1.3) mg/dL Estimated GFR 25 L (59 - ) H & H 08/31/25 09/01/25 Range/Units 09:38 04:56 Hgb 11.6 L 10.3 L (14.0-18.0) g/dL Hct 36.0 L 32.0 L (42.0-52.0) % All other labs normal.
--- NOTE | 2025-09-01 13:59 | ECG_ITS ---
Test Date: 2025-09-01 14:17:44 Measurements Intervals Doyle Rate: 121 P: 0 [place]: 0 QRS: -45 QRSD: 92 T: 64 QT: 307 QTc: 436 Interpretive Statements ATRIAL FIBRILLATION WITH RAPID VENTRICULAR RESPONSE WITH ABERRANT CONDUCTION OR VENTRICULAR PREMATURE COMPLEXES INFERIOR MYOCARDIAL INFARCTION , OF INDETERMINATE AGE [40+ ms Q WAVE AND/OR ST/T ABNORMALITY IN II/aVF] ANTEROSEPTAL MYOCARDIAL INFARCTION , OF INDETERMINATE AGE [40+ ms Q WAVE IN V1-V4] No previous ECG available for comparison Electronically Signed On 09-01-2025 22:51:34 DOCUMENT PROCESSOR by Pablito Campa M.D.
[2025-09-01] MEDS: HYDROcodone/acetaminophen (*CRX) 5-325 MG TABLET 1 TAB PO ×2 (14:44→18:55)
[2025-09-01] MEDS: SODIUM BICARBONATE TAB 650 MG TABLET PO (16:44)
[2025-09-01] MEDS: cefTRIAXone 1 GM in SODIUM CHLORIDE 0.9% IV 50 ML 100 ML IVPB (16:50)
[2025-09-01] MEDS: METOPROLOL TARTRATE INJ 5 MG/5 ML VIAL 2.5 MG IV PUSH ×2 (16:51→23:33)
[2025-09-01] MEDS: DEXTROSE 5%/0.45% SOD CHL 1,000 ML 50 ML IV CONT (16:57)
[2025-09-01 16:58] LABS: Add Urine Microscopic? YES; Appearance Urine Cloudy (Clear); Glucose Urine UA Trace mg/dL (Negative); Leukocyte Esterase Ur 2+ LEU/UL (Negative); Need Manual Microscopic Reviewed; Nitrate Urine Negative (Negative); Specific Grav Ur 1.018 (1.001-1.035)
[2025-09-01] MEDS: AZITHROMYCIN IV 500 MG in SODIUM CHLORIDE 0.9% IV 250 ML IVPB (18:04)
[2025-09-01] MEDS: MEMANTINE 5 MG TABLET PO (21:11)
[2025-09-01] MEDS: METOPROLOL TARTRATE 25 MG TABLET PO (21:11)
[2025-09-01] MEDS: MORPHINE SULFATE (*CRX) 4 MG/ML INJ 2 MG IV PUSH (21:18)
[2025-09-02] VITALS (17 sets, daily range): BP systolic 130–182; BP diastolic 62–109; PULSE 67–107; RESP 12–18; TEMP 36.1–36.8; O2SAT 93–100; BMI 10.0
[2025-09-02] MEDS: MORPHINE SULFATE (*CRX) 4 MG/ML INJ 2 MG IV PUSH (01:28)
[2025-09-02 04:59] LABS: Hematocrit 34.2 % (42.0-52.0); Hemoglobin 11.1 g/dL (14.0-18.0); Immature Granulocyte Percent A 0.6 % (0-0.5); Lymphocytes Absolute Auto 1.13 K/mm3 (0.9-3.2); Mean Corpuscular HGB Conc 32.5 g/dl (32-36); Mean Corpuscular Hemoglobin 31.5 pg (26-34); Mean Corpuscular Volume 97.2 fl (80-100); Nucleated Red Blood Cells Absolute Auto 0.000 K/mm3 (0.0-0.012); Nucleated Red Blood Cells Perc 0.0 % (0.0-0.2); Platelet Count Result 226 k/mm3 (150-375); Red Blood Count 3.52 M/mm3 (4.6-6.20); White Blood Count 8.7 K/mm3 (4.5-10.0)
[2025-09-02] MEDS: METOPROLOL TARTRATE INJ 5 MG/5 ML VIAL 2.5 MG IV PUSH ×2 (05:08→15:00)
[2025-09-02 05:30] LABS: Alanine Aminotransferase 20 U/L (6-50); Albumin Level 3.5 g/dL (3.5-5.1); Alkaline Phosphatase 72 U/L (38-126); Anion Gap 8 mmol/L (4-12); Aspartate Amino Transferase 32 U/L (17-59); Bilirubin,Total 1.0 mg/dL (0.2-1.3); Blood Urea Nitrogen 30 mg/dL (9-20); Calcium 8.9 mg/dL (8.4-10.2); Carbon Dioxide 21 mmol/L (22-30); Chloride 112 mmol/L (98-107); Estimated CRCL calculation 22 ml/min; Estimated Glomerular Filt Rate 26; Glucose 119 mg/dL (65-110); Magnesium 2.5 mg/dL (1.6-2.3); Potassium 3.6 mmol/L (3.4-5.0); Sodium 141 mmol/L (137-145); Total Protein 6.2 g/dL (6.3-8.2)
--- NOTE | 2025-09-02 07:41 | WPDANESEPPF ---
Anes - Initial Pre Proc Eval Procedure: Operation Date: 09/02/25 08:00 Proposed Procedures p Left Hip Pinning Cannulated Screws(Left) - Kimo Aparicio MD Date/Time: 09/02/25 07:41 Surgeon: Roel Mcbride MD Pre Op Diagnosis: Hip Fracture Patient Data Age: 84 Gender: M Height: 1.88 m Weight: 76 kg Last Vital Signs Temp 36.8 C 09/02/25 05:12 Pulse 75 09/02/25 05:12 Resp 18 09/02/25 05:12 BP 177/81 H 09/02/25 05:12 Pulse Ox 100 09/02/25 05:12 O2 Del Method Room Air 09/01/25 20:00 Allergies Allergy/AdvReac Type Severity Reaction Status Date / Time No Known Allergies Allergy Verified 08/31/25 15:30 Home Medications ?Medication ?Instructions ?Recorded ?Confirmed ?Type acetaminophen 500 mg capsule 500 mg PO Q6H PRN pain 08/31/25 08/31/25 History amlodipine 10 mg tablet 10 mg PO DAILY 08/31/25 08/31/25 History aspirin 81 mg tablet,delayed 81 mg PO DAILY 08/31/25 08/31/25 History release (Adult Aspirin Regimen) atorvastatin 80 mg tablet 80 mg PO DAILY 08/31/25 08/31/25 History ferrous sulfate 325 mg (65 mg 325 mg PO DAILY 08/31/25 08/31/25 History iron) tablet (FeroSul) furosemide 20 mg tablet 20 mg PO DAILY 08/31/25 08/31/25 History lisinopril 40 mg tablet 40 mg PO DAILY 08/31/25 08/31/25 History memantine 10 mg tablet 5 mg PO BID 08/31/25 08/31/25 History metoprolol tartrate 25 mg tablet 25 mg PO BID 08/31/25 08/31/25 History multivitamin (Daily Multi-Vitamin 1 tablet PO DAILY 08/31/25 08/31/25 History tablet) sodium bicarbonate 650 mg tablet 650 mg PO BID 08/31/25 08/31/25 History Laboratory Tests 09/01/25 09/02/25 15:37 04:23 WBC 8.7 K/mm3 (4.5-10.0) RBC 3.52 L M/mm3 (4.6-6.20) Hgb 11.1 L g/dL (14.0-18.0) Hct 34.2 L % (42.0-52.0) MCV 97.2 fl (80-100) MCH 31.5 pg (26-34) MCHC 32.5 g/dl (32-36) RDW 13.4 % (11.5-14.5) Plt Count 226 k/mm3 (150-375) MPV 9.8 fl (7.4-10.4) Immature Gran % (Auto) 0.6 H % (0-0.5) Neut % (Auto) 72.2 % (45.5-73.1) Lymph % (Auto) 13.0 L % (18.3-44.2) [place] % (Auto) 8.6 H % (2.6-8.5) Eos % (Auto) 5.1 H % (0-4.4) Baso % (Auto) 0.5 % (0.2-1.2) Lymph # (Auto) 1.13 K/mm3 (0.9-3.2) [place] # (Auto) 0.8 H K/mm3 (0.1-0.6) Eos # (Auto) 0.4 H K/mm3 (0-0.3) Baso # (Auto) 0.0 K/mm3 (0.0-0.1) Abs Immat Gran (auto) 0.05 H K/mm3 (0.00-0.031) Absolute Neuts (auto) 6.3 K/mm3 (1.3-6.7) Absolute Nucleated RBC 0.000 K/mm3 (0.0-0.012) Nucleated RBC % 0.0 % (0.0-0.2) Sodium 141 mmol/L (137-145) Potassium 3.6 mmol/L (3.4-5.0) Chloride 112 H mmol/L (98-107) Carbon Dioxide 21 L mmol/L (22-30) Anion Gap 8 mmol/L (4-12) BUN 30 H mg/dL (9-20) Creatinine 2.36 H mg/dL (0.7-1.3) Estim Creat Clear Calc 22 ml/min Estimated GFR 26 L (59 - ) Glucose 119 H mg/dL (65-110) Calcium 8.9 mg/dL (8.4-10.2) Magnesium 2.5 H mg/dL (1.6-2.3) Total Bilirubin 1.0 mg/dL (0.2-1.3) AST 32 U/L (17-59) ALT 20 U/L (6-50) Alkaline Phosphatase 72 U/L (38-126) Total Protein 6.2 L g/dL (6.3-8.2) Albumin 3.5 g/dL (3.5-5.1) Urine Color Yellow (Yellow) Urine Appearance Cloudy H (Clear) Urine pH 5.5 (5.0-9.0) Ur Specific [place] 1.018 (1.001-1.035) Urine Protein 3+ H mg/dL (Negative) Urine Glucose (UA) Trace H mg/dL (Negative) Urine Ketones 1+ H mg/dL (Negative) Ur Blood (Man) 3+ H (Negative) Urine Nitrate Negative (Negative) Urine Bilirubin Negative (Negative) Urine Urobilinogen 1.0 mg/dL (<2.0) Add Ur Microanalysis Reviewed Leukocyte Esterase Rfl 2+ H SHIVAM/UL (Negative) Urine RBC 21-50 H /hpf (0-2) Urine WBC 21-50 H /hpf (0-3) Ur Squamous Epith Cells Occasional /hpf (Few) Urine Bacteria None seen /hpf Urine Casts 11-20 Patient hx anesthesia problems: none Family hx anesthesia problems: none Results Review: All pre-operative results and documents have been reviewed as part of the pre-operative evaluation. [facility] Past Medical History Medical History Congestive heart failure Hypertension Hyperlipidemia Dementia Family History Family History Other Unknown family medical history Social History Social History Smoking status: Unknown if ever smoked Alcohol intake: unknown Substance use: unknown Substance use type: unknown Spiritual care concerns: No Anes - Eval Final PreProcedure Day of Procedure 09/02/25 07:41 Patient weight: normal Heart: regular rate and rhythm Lungs: clear to auscultation Airway: Mallampati scale class II Neurological: alert and oriented Last oral intake: >/= 8 hours ASA classification: III Emergent: no Anesthetic plan: proceed Anesthesia type and monitoring: general LMA and standard monitoring Results Review: All pre-operative results and documents have been reviewed as part of the pre-operative evaluation. Informed Consent: The patient's anesthetic plan and its attendant risks and benefits were discussed with the patient/family/POA. Questions were solicited and answers provided to the satisfaction of the patient/family/POA.
--- NOTE | 2025-09-02 08:08 | WPDHPUPDATE1 ---
History and Physical Update Update Date/Time: 09/02/25 08:08 History and Physical has been reviewed, including an updated exam of the patient. There are NO changes in the patient's condition. Risks, benefits, and alternatives have been discussed and questions answered. Patient agrees to proceed with procedure.
[2025-09-02] MEDS: ceFAZolin 2 GM in SODIUM CHLORIDE 0.9% IV 50 ML 100 ML IVPB ×2 (08:17→16:39)
[2025-09-02] MEDS: TRANEXAMIC ACID 1,000MG/ISO100 1,000 MG/100 ML BAG 200 MG IVPB (08:17)
[2025-09-02] MEDS: LACTATED RINGERS 1,000 ML 30 ML IV CONT (09:29)
[2025-09-02] MEDS: fentaNYL CITRATE INJ (*CRX) 100 MCG/2 ML VIAL 25 MCG IV PUSH ×3 (09:46→10:12)
--- NOTE | 2025-09-02 09:48 | W.PM.PROC2 ---
Procedure Note - Detailed Date of Procedure 09/02/25 Pre-op Diagnosis LEFT FEMORAL NECK Fracture Post-op Diagnosis Same Procedure Performed PERCUTANEOUS PINNING LEFT FEMORAL NECK Surgeon Kimo Aparicio MD Anesthesia General Description of Procedure THE PATIENT WAS TAKEN TO THE OPERATING ROOM AND PLACED UNDER GENERAL ANESTHESIA. THE PATIENT WAS PLACED ON A FRACTURE TABLE. THE LEFT LOWER EXTREMITY WAS PREPPED AND DRAPED IN THE STERIL FASHION FROM THE KNEE TO THE ILIAC CREST. THE INCISION WAS MADE ON THE LATERAL HIP JUST DISTAL TO THE GREATER TROCHANTER DOWN TO THE BONE. BLEEDERS WERE CAUTERIZED. 3 GUIDE PINS WERE PLACED THROUGH THE FEMORAL NECK AND PASSED THE FRACTURE SITE AND IN TO THE SUBCHONDRAL BONE OF THE FEMORAL HEAD. THREE 3 ARTHREX CANNULATED SCREWS WERE PLACED OVER THE GUIDE PINS AND THESE WERE SHOWN TO BE IN GOOD POSITION PER FLUOROSCOPY ON BOTH THE AP AND LATERAL VIEWS. ALL SCREWS HAD EXCELLENT BITES. THE WOUND WAS WASHED WELL. THE DEEP FASCIAL LAYER WAS APPROXIMATED WITH #1 VICRYL SUTURE, THE SUBCUTANEOUS LAYER WITH 2-0 VICRYL AND THE SKIN WAS APPROXIMATED WITH AB. A STERILE DRESSING WAS PLACED. THE PATIENT WAS EXTUBATED AND SENT TO RECOVERY ROOM Estimated Blood Loss 20 Urine Output 250 Drains No Complications No immediate complications Condition Stable Disposition PACU
--- NOTE | 2025-09-02 13:01 | PM.IMPN ---
Progress Note: A&P Assessment and Plan (1) Closed subcapital fracture of neck of left femur: Code(s): S72.012A - Unspecified intracapsular fracture of left femur, initial encounter for closed fracture Status: Acute Assessment and Plan: Patient presents on 08/31 with complaints of left leg pain. Unable to provide history due to dementia. Patient likely had an unwitnessed fall -orthopedic consult -NPO in anticipation for surgery -pain control with acetaminophen, hydrocodone, morphine s/p left hip surgery 09/02/2025 (2) Dementia: Code(s): F03.90 - Unspecified dementia, unspecified severity, without behavioral disturbance, psychotic disturbance, mood disturbance, and anxiety Status: Chronic Assessment and Plan: Patient A&O x1. Frequent attempts to get out of bed. -olanzapine 5 mg ODT once unsuccessful. -olanzapine 5 mg IM once -continue Namenda -consider patient sitter dx with lewy body dementia ongoing hallucination. zyprexa at night (3) Congestive heart failure: Code(s): I50.9 - Heart failure, unspecified Status: Chronic Assessment and Plan: Not in acute exacerbation. No previous echo available for review -continue 20 mg Lasix daily (4) Hyperlipidemia: Code(s): E78.5 - Hyperlipidemia, unspecified Status: Chronic Assessment and Plan: Continue atorvastatin (5) Hypertension: Qualifiers: Hypertension type: primary hypertension Qualified Code(s): I10 - Essential (primary) hypertension Code(s): I10 - Essential (primary) hypertension Status: Chronic Assessment and Plan: Continue amlodipine, lisinopril, and metoprolol (6) CKD (chronic kidney disease) stage 4, GFR 15-29 ml/min: Code(s): N18.4 - Chronic kidney disease, stage 4 (severe) Status: Acute Assessment and Plan: Creatinine baseline runs mid 2s currently baseline Plan afib: no prior diagnosis. reported on ekg however lots of artifact present. will add telemetry and will monitor on telemetry. possible early pneumonia: started on azithromycin and ceftraixone. UTI: ceftraixone. follow urine culture Mild chronic anemia Diet: NPO GI prophylaxis: NA DVT prophylaxis: SCDs lines/drains: PIV Fluids: NA Code status: Full Subjective Date/time seen: 09/02/25 13:01 Interval history: Patient underwent surgery this am hallucinating currently, knows he is in the hospital. family at bedside. has underlying lewy body dementia. recently placed at [facility] Review of Systems Review of Systems: All systems reviewed & are unremarkable except as noted in HPI and below Exam Narrative: GENERAL: non-toxic appearing, in no acute distress. HEAD: Normocephalic, atraumatic. EYES: PERRLA. Conjunctivae clear. NECK: Trachea midline. No adenopathy, no masses. RESPIRATORY: Airway patent, respirations nonlabored. CTA. CARDIOVASCULAR: Regular rate and rhythm GASTROINTESTINAL: Abdomen is soft and nontender. No organomegaly. Bowel sounds normal in all quadrants. GENITOURINARY: Defer MUSCULOSKELETAL: Left hip with dressing SKIN: Warm, dry, normal color. NEURO: Restless moving all extremities except for left leg PSYCHIATRIC: normal mood Objective Data Vital Signs Vital Signs: Vital Signs - 24 hr 09/01/25 16:51 09/01/25 20:00 09/01/25 21:11 Temperature Pulse Rate 86 116 H Respiratory Rate Blood Pressure Pulse Oximetry Oxygen Delivery Room Air Oxygen Flow Rate 09/01/25 21:21 09/01/25 23:33 09/01/25 23:40 Temperature 98.4 F Pulse Rate 117 H 82 87 Respiratory Rate 18 18 Blood Pressure 177/72 H Pulse Oximetry 98 95 Oxygen Delivery Oxygen Flow Rate 09/02/25 05:08 09/02/25 05:12 09/02/25 09:29 Temperature 98.2 F 97.0 F L Pulse Rate 87 75 70 Respiratory Rate 18 14 Blood Pressure 177/81 H 163/93 H Pulse Oximetry 100 98 Oxygen Delivery Simple Face Mask Oxygen Flow Rate 6 09/02/25 09:40 09/02/25 09:55 09/02/25 10:10 Temperature Pulse Rate 68 72 74 Respiratory Rate 14 14 16 Blood Pressure 130/109 H 155/90 H 182/92 H Pulse Oximetry 100 96 96 Oxygen Delivery Simple Face Mask Room Air Room Air Oxygen Flow Rate 6 09/02/25 10:25 09/02/25 10:45 09/02/25 11:13 Temperature 97.2 F L 97.9 F 98.0 F Pulse Rate 81 73 76 Respiratory Rate 16 16 16 Blood Pressure 180/90 H 167/71 H 162/70 H Pulse Oximetry 100 97 97 Oxygen Delivery Room Air Oxygen Flow Rate 09/02/25 12:00 09/02/25 12:15 09/02/25 12:17 Temperature 97.9 F Pulse Rate 85 Respiratory Rate 16 Blood Pressure 147/85 H Pulse Oximetry 98 Oxygen Delivery Room Air Room Air Oxygen Flow Rate Intake/Output Intake/Output: Intake & Output 08/30/25 08/31/25 09/01/25 09/02/25 23:59 23:59 23:59 23:59 Intake Total 240 0 440 Output Total [id number] [id number] [id number] Meds/Results Medications: Active Medications Generic Name Dose Route Start Last Admin Trade Name Freq PRN Reason Stop Dose Admin Acetaminophen 500 mg 09/02/25 10:30 Acetaminophen 500 Mg Tablet PO Q6H PRN Pain Amlodipine Besylate 10 mg 09/01/25 09:00 09/01/25 12:27 Amlodipine Besylate 10 Mg Tablet PO Not Given DAILY [facility] Aspirin 81 mg 09/03/25 09:00 Aspirin 81 Mg Enteric Tablet PO DAILY [facility] Atorvastatin Calcium 80 mg 09/01/25 09:00 09/01/25 12:27 Atorvastatin 40 Mg Tablet PO Not Given DAILY [facility] Diazepam 5 mg 09/02/25 10:30 Diazepam (*Crx) 5 Mg Tablet PO Q8H PRN Muscle Spasm Enoxaparin Sodium 40 mg 09/03/25 09:00 Enoxaparin 40 Mg/0.4 Ml Syringe SUB-Q DAILY [facility] Famotidine 20 mg 09/02/25 21:00 Famotidine 20 Mg Tablet PO Q12HR [facility] Ferrous Sulfate 325 mg 09/01/25 09:00 09/01/25 12:27 Ferrous Sulfate 325 Mg Tablet PO Not Given DAILY [facility] Furosemide 20 mg 09/01/25 09:00 Furosemide 20 Mg Tablet PO DAILY [facility] Hydromorphone HCl 1 mg 09/02/25 10:30 Hydromorphone Hcl Inj (*Crx) 1 Mg/Ml Syr IV PUSH Q2H PRN Breakthrough Pain Rated 7-10 or NPO Hydromorphone HCl 0.5 mg 09/02/25 10:30 Hydromorphone Hcl Inj (*Crx) 1 Mg/Ml Syr IV PUSH Q2H PRN Breakthrough Pain Rated 4-6 or NPO Hydroxyzine Pamoate 50 mg 09/02/25 10:30 Hydroxyzine Pamoate 25 Mg Capsule PO Q4H PRN Itching Dextrose/Sodium Chloride 1,000 mls @ 50 mls/hr 09/01/25 14:00 09/01/25 16:57 Dextrose 5% Sodium Chloride 0.45% IV CONT 50 mls/hr .Q20H [facility] Administration Ceftriaxone Sodium 1 gm/ 50 mls @ 100 mls/hr 09/01/25 16:00 09/01/25 16:50 Sodium Chloride IVPB 100 mls/hr Q24H [facility] Administration Azithromycin 500 mg/ Sodium 250 mls @ 250 mls/hr 09/01/25 17:00 09/01/25 18:04 Chloride IVPB 250 mls/hr Q24H [facility] Administration Cefazolin Sodium 2 gm/ Sodium 50 mls @ 100 mls/hr 09/02/25 16:00 Chloride IVPB 09/03/25 08:29 Q8H [facility] Sodium Chloride 1,000 mls @ 125 mls/hr 09/02/25 10:30 Normal Saline Iv IV CONT .Q8H [facility] Ibuprofen 800 mg in 200 mls @ 400 mls/hr 09/02/25 10:30 Caldolor 800 Mg/200 Ml IVPB Q6H PRN Breakthrough Pain Rated 1-3 or NPO Lisinopril 40 mg 09/01/25 09:00 09/01/25 12:28 Lisinopril 20 Mg Tablet PO Not Given DAILY [facility] Memantine 5 mg 08/31/25 23:00 09/01/25 21:11 Memantine 5 Mg Tablet PO 5 mg Q12HR [facility] Administration Metoprolol Tartrate 25 mg 08/31/25 23:00 09/01/25 21:11 Metoprolol Tartrate 25 Mg Tablet PO 25 mg Q12HR [facility] Administration Metoprolol Tartrate 2.5 mg 09/01/25 15:55 09/02/25 05:08 Metoprolol Tartrate Inj 5 Mg/5 Ml Vial IV PUSH 2.5 mg Q6HR ROSALIA Administration Miscellaneous Information 1 each 09/02/25 00:01 Lovenox Should Be 30mg Daily For Ecrcl Of 22 Ml/Min. Please Clarify If This Would Be Ok T XX 10/02/25 00:00 CLARIFY ROSALIA Multivitamins Therapeutic 1 tablet 09/01/25 09:00 09/01/25 12:29 Multivitamins Therapeutic Tab (*Bkc) PO Not Given DAILY [facility] Naloxone HCl 0.1 mg 09/02/25 10:30 Naloxone Hcl 0.4 Mg/Ml Vial IV PUSH Q2M PRN Opiate Reversal Ondansetron HCl 4 mg 09/02/25 10:30 Ondansetron Inj 4 Mg/2 Ml Vial IV PUSH Q4H PRN Nausea And Vomiting Oxycodone/Acetaminophen 1 tablet 09/02/25 10:30 Oxycodone/Acetaminophen (*Crx) 5-325 Mg Tablet PO Q4H PRN Pain Rated 4-6 Oxycodone/Acetaminophen 1 tab 09/02/25 10:30 Oxycodone/Acetaminophen (*Crx) 10-325 Mg Tablet PO Q6H PRN Pain Rated 7-10 Polyethylene Glycol 17 gm 09/03/25 09:00 Polyethylene Glycol 3350 17 Gm Powd.Pack PO QAM [facility] Senna/Docusate Sodium 2 tab 09/02/25 17:00 Senna/Docusate Sodium Tablet PO BID [facility] Sodium Bicarbonate 650 mg 08/31/25 23:00 09/01/25 16:44 Sodium Bicarbonate Tab 650 Mg Tablet PO 650 mg BID [facility] Administration Radiology Results: ITS Impressions Hip/Pelvis X-Ray 08/31/25 10:39 Impression: Fractures detailed above. Sclerotic lesion, there is a prior history of neoplasm metastasis is not excluded. Nuclear medicine bone scan suggested Venous Doppler Study 08/31/25 10:39 IMPRESSION: 1. No left leg DVT. Hip CT 08/31/25 12:02 IMPRESSION: 1. Mildly impacted subcapital femoral neck fracture. 2. Intertrochanteric intramedullary benign-appearing mass possibly representing chondroid lesion, enchondroma or ABC. The fracture does not directly involve this lesion, however the superior margin of the lesion is within about 2 cm of the fracture. Chest X-Ray 09/01/25 14:46 Impression: Probable early pneumonia Labs Labs: Laboratory Results - last 24 hr 09/01/25 09/02/25 15:37 04:23 WBC 8.7 RBC 3.52 L Hgb 11.1 L Hct 34.2 L MCV 97.2 MCH 31.5 MCHC 32.5 RDW 13.4 Plt Count 226 MPV 9.8 Immature Gran % (Auto) 0.6 H Neut % (Auto) 72.2 Lymph % (Auto) 13.0 L [place] % (Auto) 8.6 H Eos % (Auto) 5.1 H Baso % (Auto) 0.5 Lymph # (Auto) 1.13 [place] # (Auto) 0.8 H Eos # (Auto) 0.4 H Baso # (Auto) 0.0 Abs Immat Gran (auto) 0.05 H Absolute Neuts (auto) 6.3 Absolute Nucleated RBC 0.000 Nucleated RBC % 0.0 Sodium 141 Potassium 3.6 Chloride 112 H Carbon Dioxide 21 L Anion Gap 8 BUN 30 H Creatinine 2.36 H Estim Creat Clear Calc 22 Estimated GFR 26 L Glucose 119 H Calcium 8.9 Magnesium 2.5 H Total Bilirubin 1.0 AST 32 ALT 20 Alkaline Phosphatase 72 Total Protein 6.2 L Albumin 3.5 Urine Color Yellow Urine Appearance Cloudy H Urine pH 5.5 Ur Specific [place] 1.018 Urine Protein 3+ H Urine Glucose (UA) Trace H Urine Ketones 1+ H Ur Blood (Man) 3+ H Urine Nitrate Negative Urine Bilirubin Negative Urine Urobilinogen 1.0 Add Ur Microanalysis Reviewed Leukocyte Esterase Rfl 2+ H Urine RBC 21-50 H Urine WBC 21-50 H Ur Squamous Epith Cells Occasional Urine Bacteria None seen Urine Casts 11-20
[2025-09-02] MEDS: METOPROLOL TARTRATE 25 MG TABLET PO ×2 (14:46→21:17)
[2025-09-02] MEDS: MULTIVITAMINS THERAPEUTIC TAB (*BKC) 1 TABLET PO (14:46)
[2025-09-02] MEDS: diazePAM (*CRX) 5 MG TABLET PO (14:46)
[2025-09-02] MEDS: ATORVASTATIN 40 MG TABLET 80 MG PO (14:46)
[2025-09-02] MEDS: FERROUS SULFATE 325 MG TABLET PO (14:47)
[2025-09-02] MEDS: SODIUM BICARBONATE TAB 650 MG TABLET PO (14:47)
[2025-09-02] MEDS: MEMANTINE 5 MG TABLET PO ×2 (14:47→21:17)
[2025-09-02] MEDS: cefTRIAXone 1 GM in SODIUM CHLORIDE 0.9% IV 50 ML 100 ML IVPB (15:04)
[2025-09-02] MEDS: HYDROmorphone HCL INJ (*CRX) 1 MG/ML SYR IV PUSH (16:43)
[2025-09-02] MEDS: IBUPROFEN IV 800 MG/200 ML 800 MG/200 ML BAG 400 MG IVPB (17:34)
[2025-09-02] MEDS: AZITHROMYCIN IV 500 MG in SODIUM CHLORIDE 0.9% IV 250 ML IVPB (18:13)
[2025-09-02] MEDS: DEXTROSE 5%/0.45% SOD CHL 1,000 ML 50 ML IV CONT (21:13)
[2025-09-02] MEDS: FAMOTIDINE 20 MG TABLET PO (21:17)
[2025-09-02] MEDS: OLANZapine ODT DISPERTAB 5 MG PO (21:17)
[2025-09-03] VITALS (16 sets, daily range): BP systolic 121–186; BP diastolic 52–84; PULSE 44–100; RESP 14–20; TEMP 35.9–37.2; O2SAT 95–100; BMI 21.4
--- NOTE | 2025-09-03 | ECHO_ITS ---
Patient Info Name: Katt Bailey Age: 84 years : 1940 Gender: Male Ht: 74 in Wt: 167 lbs BSA: 1.98 m2 HR: 58 bpm BP: 186 / 84 mmHg Technical Quality: Fair Exam Date: 09/03/2025 9:47 AM Patient Status: I Admit Date: 09/01/2025 Exam Type: CA echo dop color flow w con Complete two-dimensional, color flow and Doppler transthoracic echocardiogram is performed with contrast to opacify the left ventricle and to improve the deliniation of the left ventricle endocardial borders. Staff Referring Physician: Kimo Aparicio MD Banquet Waiter/Waitress: Abdiel Chapin III Attending Provider: Jase Mcbride MD Contrast/Agitated Saline Contrast/Ag. Saline: Definity Amount: 2.00 ml Administered By: Abdiel Chapin III Existing IV Access: Yes IV Access Condition: patent with no signs of infiltration Summary 1. Definity contrast administered improved wall motion interpretation. 2. Left ventricular chamber dimension is normal. 3. Left ventricular systolic function is normal, estimated at 60-65. 4. The left ventricular diastolic function is grade I diastolic dysfunction. 5. Ventricular septum is sigmoid shaped. No resting LVOT obstruction. 6. E/e' 5 is not elevated. 7. Mild pulmonary hypertension, estimated pulmonary arterial systolic pressure is 43 mmHg. Left Ventricle Left ventricular chamber dimension is normal. Left ventricular systolic function is normal, estimated at 60-65. The left ventricular diastolic function is grade I diastolic dysfunction. E/e' 5 is not elevated. Ventricular septum is sigmoid shaped. No resting LVOT obstruction. Definity contrast administered improved wall motion interpretation. Right Ventricle Right ventricular chamber dimension is normal. Right ventricular systolic function is normal and with normal TAPSE 2.5 cm. Left Atria Left atrial chamber dimension is normal. Right Atria Right atrial chamber dimension is normal. Aortic Valve The aortic valve is not well visualized. Cannot determine number of aortic valve leaflets. There is moderate aortic valve sclerosis. There is no aortic valve stenosis based on valve area and gradients. There is no aortic valve regurgitation. Pulmonic Valve There is no pulmonic regurgitation. Mitral Valve There is no mitral valve stenosis. There is no mitral valve regurgitation. Tricuspid Valve There is no tricuspid valve regurgitation. Mild pulmonary hypertension, estimated pulmonary arterial systolic pressure is 43 mmHg. Pericardium/Pleural There is no pericardial effusion. Inferior Vena Cava Normal inferior vena cava with >50% collapse upon inspiration consistent with normal right atrial pressure, 5 mmHg. Aorta The aortic root size at the sinus of Valsalva is normal. Left Ventricular Outflow Tract Name Value Normal LVOT 2D LVOT Diameter 2.2 cm LVOT Doppler LVOT Peak Velocity 111 cm/s LVOT Peak Gradient 5 mmHg LVOT Mean Gradient 3 mmHg LVOT VTI 23 cm LVOT VTI/AV VTI Ratio 0.8 LVOT Stroke Volume 89 ml LVOT CO 5.0 l/min LVOT CI 2.5 l/min/m2 Mitral Valve Name Value Normal MV Doppler MV Peak Gradient 4 mmHg MV Mean Gradient 1 mmHg MV Area (Cont Eq VTI) 3.1 cm2 MV Diastolic Function MV E Peak Velocity 45 cm/s MV A Peak Velocity 94 cm/s MV E/A 0.5 MV Decel Time (PW) 304 ms MV Annular TDI MV E/e' (Septal) 6.6 MV E/e' (Lateral) 4.8 MV E/e' (Average) 5.7 Tricuspid Valve Name Value Normal TV Regurgitation Doppler TR Peak Velocity 308 cm/s TR Peak Gradient 38 mmHg Estimated PAP/RSVP RA Pressure 5 mmHg <=5 PA Systolic Pressure 43 mmHg <36 RV Systolic Pressure 43 mmHg <36 TV Annular TDI TV Lateral Luanne s' Velocity 10.9 cm/s >=9.5 Aortic Valve Name Value Normal AV Doppler AV Peak Velocity 144 cm/s AV Peak Gradient 8 mmHg AV Mean Gradient 4 mmHg AV VTI 29 cm AV Area (Cont Eq VTI) 3.1 cm2 >=3.0 AV Area (Cont Eq Kahlil) 3.0 cm2 AV DI (Kahlil) 0.77 AV Regurgitation 2D LVOT Area 3.9 cm2 Ventricles Name Value Normal LV Dimensions 2D/MM LVOT Diameter 2.2 cm LV Fractional Shortening/Ejection Fraction 2D/MM LV Diastolic Volume (4C MOD) 112 ml LV EF (4C MOD) 66 % LV Diastolic Volume (2C MOD) 91 ml LV EF (2C MOD) 72 % LV Diastolic Volume (BP MOD) 105 ml 62-150 LV Diastolic Volume Index (BP MOD) 53 ml/m2 34-74 LV Systolic Volume (BP MOD) 34 ml 21-61 LV Systolic Volume Index (BP MOD) 17 ml/m2 11-31 LV EF (BP MOD) 68 % 52-72 LV Diastolic Length (4C) 8.2 cm LV Systolic Length (4C) 7.2 cm LV Stroke Volume (4C MOD) 74 ml Atria Name Value Normal LA Dimensions LA Volume (4C A-L) 33 ml LA Volume (BP A-L) 39 ml RA Dimensions RA Systolic Major Dutton Length (4C) 6.1 cm 2.1-2.7 RA Area (4C) 16.4 cm2 <=18.0 Report Signatures
[2025-09-03] MEDS: ceFAZolin 2 GM in SODIUM CHLORIDE 0.9% IV 50 ML 100 ML IVPB ×2 (00:25→08:10)
[2025-09-03 05:31] LABS: Hematocrit 35.6 % (42.0-52.0); Hemoglobin 11.3 g/dL (14.0-18.0); Immature Granulocyte Percent A 0.5 % (0-0.5); Lymphocytes Absolute Auto 1.10 K/mm3 (0.9-3.2); Mean Corpuscular HGB Conc 31.7 g/dl (32-36); Mean Corpuscular Hemoglobin 31.8 pg (26-34); Mean Corpuscular Volume 100.3 fl (80-100); Nucleated Red Blood Cells Absolute Auto 0.000 K/mm3 (0.0-0.012); Nucleated Red Blood Cells Perc 0.0 % (0.0-0.2); Platelet Count Result 220 k/mm3 (150-375); Red Blood Count 3.55 M/mm3 (4.6-6.20); White Blood Count 7.5 K/mm3 (4.5-10.0)
[2025-09-03 05:44] LABS: Alanine Aminotransferase 13 U/L (6-50); Albumin Level 3.0 g/dL (3.5-5.1); Alkaline Phosphatase 67 U/L (38-126); Anion Gap 7 mmol/L (4-12); Aspartate Amino Transferase 27 U/L (17-59); Bilirubin,Total 0.6 mg/dL (0.2-1.3); Blood Urea Nitrogen 32 mg/dL (9-20); Calcium 8.6 mg/dL (8.4-10.2); Carbon Dioxide 22 mmol/L (22-30); Chloride 112 mmol/L (98-107); Estimated CRCL calculation 23 ml/min; Estimated Glomerular Filt Rate 27; Glucose 152 mg/dL (65-110); Magnesium 2.6 mg/dL (1.6-2.3); Potassium 3.7 mmol/L (3.4-5.0); Sodium 141 mmol/L (137-145); Total Protein 5.6 g/dL (6.3-8.2)
--- NOTE | 2025-09-03 08:00 | PM.IMPN ---
Progress Note: A&P Assessment and Plan (1) Closed subcapital fracture of neck of left femur: Code(s): S72.012A - Unspecified intracapsular fracture of left femur, initial encounter for closed fracture Status: Acute Assessment and Plan: Patient presents on 08/31 with complaints of left leg pain. Unable to provide history due to dementia. Patient likely had an unwitnessed fall -orthopedic following -pain control with acetaminophen, hydrocodone, morphine -s/p left hip surgery 09/02/2025 (2) Dementia: Code(s): F03.90 - Unspecified dementia, unspecified severity, without behavioral disturbance, psychotic disturbance, mood disturbance, and anxiety Status: Chronic Assessment and Plan: Patient A&O x1. Frequent attempts to get out of bed. -olanzapine 5 mg ODT once unsuccessful. -olanzapine 5 mg IM once -continue Namenda -consider patient sitter dx with lewy body dementia ongoing hallucination. zyprexa at night (3) Congestive heart failure: Code(s): I50.9 - Heart failure, unspecified Status: Chronic Assessment and Plan: Not in acute exacerbation. No previous echo available for review -continue 20 mg Lasix daily (4) Hyperlipidemia: Code(s): E78.5 - Hyperlipidemia, unspecified Status: Chronic Assessment and Plan: Continue atorvastatin (5) Hypertension: Qualifiers: Hypertension type: primary hypertension Qualified Code(s): I10 - Essential (primary) hypertension Code(s): I10 - Essential (primary) hypertension Status: Chronic Assessment and Plan: Continue amlodipine, lisinopril, and metoprolol (6) CKD (chronic kidney disease) stage 4, GFR 15-29 ml/min: Code(s): N18.4 - Chronic kidney disease, stage 4 (severe) Status: Acute Assessment and Plan: Creatinine baseline runs mid 2s currently baseline Plan afib: no prior diagnosis. reported on ekg however lots of artifact present. will add telemetry and will monitor on telemetry. possible early pneumonia: started on azithromycin and ceftraixone. UTI: ceftraixone. follow urine culture Mild chronic anemia Diet: NPO GI prophylaxis: NA DVT prophylaxis: SCDs lines/drains: PIV Fluids: NA Code status: Full Subjective Date/time seen: 09/03/25 08:00 Interval history: Patient underwent percutaneous pinning left femoral neck on 09/02. Patient had episodes of hallucination during the hospitalization possibly due to underlying dementia. Review of Systems Review of Systems: All systems reviewed & are unremarkable except as noted in HPI and below ROS unobtainable: Yes unobtainable due to mental status Exam Narrative: GENERAL: non-toxic appearing, in no acute distress. HEAD: Normocephalic, atraumatic. EYES: PERRLA. Conjunctivae clear. NECK: Trachea midline. No adenopathy, no masses. RESPIRATORY: Airway patent, respirations nonlabored. CTA. CARDIOVASCULAR: Regular rate and rhythm GASTROINTESTINAL: Abdomen is soft and nontender. No organomegaly. Bowel sounds normal in all quadrants. GENITOURINARY: Defer MUSCULOSKELETAL: Left hip with dressing SKIN: Warm, dry, normal color. NEURO: Restless moving all extremities except for left leg PSYCHIATRIC: normal mood Objective Data Vital Signs Vital Signs: Vital Signs - 24 hr 09/02/25 09:29 09/02/25 09:40 09/02/25 09:55 Temperature 97.0 F L Pulse Rate 70 68 72 Respiratory Rate 14 14 14 Blood Pressure 163/93 H 130/109 H 155/90 H Pulse Oximetry 98 100 96 Oxygen Delivery Simple Face Mask Simple Face Mask Room Air Oxygen Flow Rate 6 6 09/02/25 10:10 09/02/25 10:25 09/02/25 10:45 Temperature 97.2 F L 97.9 F Pulse Rate 74 81 73 Respiratory Rate 16 16 16 Blood Pressure 182/92 H 180/90 H 167/71 H Pulse Oximetry 96 100 97 Oxygen Delivery Room Air Room Air Oxygen Flow Rate 09/02/25 11:13 09/02/25 12:00 09/02/25 12:15 Temperature 98.0 F 97.9 F Pulse Rate 76 85 Respiratory Rate 16 16 Blood Pressure 162/70 H 147/85 H Pulse Oximetry 97 98 Oxygen Delivery Room Air Oxygen Flow Rate 09/02/25 12:17 09/02/25 14:46 09/02/25 15:00 Temperature Pulse Rate 85 85 Respiratory Rate Blood Pressure Pulse Oximetry Oxygen Delivery Room Air Oxygen Flow Rate 09/02/25 15:23 09/02/25 18:00 09/02/25 20:00 Temperature Pulse Rate 107 H 71 Respiratory Rate 18 Blood Pressure 138/63 Pulse Oximetry 95 Oxygen Delivery Room Air Oxygen Flow Rate 09/02/25 20:00 09/02/25 20:15 09/02/25 21:17 Temperature 97.3 F L Pulse Rate 67 68 71 Respiratory Rate 12 Blood Pressure 138/62 Pulse Oximetry 93 Oxygen Delivery Oxygen Flow Rate 09/03/25 00:00 09/03/25 00:15 09/03/25 00:55 Temperature 96.7 F L Pulse Rate 59 L 58 L 44 L Respiratory Rate 14 Blood Pressure 121/52 L Pulse Oximetry 95 Oxygen Delivery Oxygen Flow Rate 09/03/25 04:00 09/03/25 04:15 09/03/25 07:53 Temperature 97.7 F 97.6 F Pulse Rate 52 L 58 L 61 Respiratory Rate 16 18 Blood Pressure 186/84 H 163/70 H Pulse Oximetry 97 100 Oxygen Delivery Oxygen Flow Rate Intake/Output Intake/Output: Intake & Output 08/31/25 09/01/25 09/02/25 09/03/25 23:59 23:59 23:59 23:59 Intake Total 176 723 4414 50 Output Total 208 859 4410 550 Balance -10 -550 340 -500 Meds/Results Medications: Active Medications Generic Name Dose Route Start Last Admin Trade Name Freq PRN Reason Stop Dose Admin Acetaminophen 500 mg 09/02/25 10:30 Acetaminophen 500 Mg Tablet PO Q6H PRN Pain Amlodipine Besylate 10 mg 09/01/25 09:00 09/02/25 14:47 Amlodipine Besylate 10 Mg Tablet PO 10 mg DAILY [facility] Administration Aspirin 81 mg 09/03/25 09:00 Aspirin 81 Mg Enteric Tablet PO DAILY [facility] Atorvastatin Calcium 80 mg 09/01/25 09:00 09/02/25 14:46 Atorvastatin 40 Mg Tablet PO 80 mg DAILY [facility] Administration Diazepam 5 mg 09/02/25 10:30 09/02/25 14:46 Diazepam (*Crx) 5 Mg Tablet PO 5 mg Q8H PRN Administration Muscle Spasm Enoxaparin Sodium 30 mg 09/03/25 09:00 Enoxaparin 30 Mg/0.3 Ml Syringe SUB-Q DAILY [facility] Famotidine 20 mg 09/02/25 21:00 09/02/25 21:17 Famotidine 20 Mg Tablet PO 20 mg Q12HR [facility] Administration Ferrous Sulfate 325 mg 09/01/25 09:00 09/02/25 14:47 Ferrous Sulfate 325 Mg Tablet PO 325 mg DAILY [facility] Administration Furosemide 20 mg 09/01/25 09:00 Furosemide 20 Mg Tablet PO DAILY [facility] Hydromorphone HCl 1 mg 09/02/25 10:30 09/02/25 16:43 Hydromorphone Hcl Inj (*Crx) 1 Mg/Ml Syr IV PUSH 1 mg Q2H PRN Administration Breakthrough Pain Rated 7-10 or NPO Hydromorphone HCl 0.5 mg 09/02/25 10:30 Hydromorphone Hcl Inj (*Crx) 1 Mg/Ml Syr IV PUSH Q2H PRN Breakthrough Pain Rated 4-6 or NPO Hydroxyzine Pamoate 50 mg 09/02/25 10:30 09/02/25 14:46 Hydroxyzine Pamoate 25 Mg Capsule PO 50 mg Q4H PRN Administration Itching Dextrose/Sodium Chloride 1,000 mls @ 50 mls/hr 09/01/25 14:00 09/02/25 21:13 Dextrose 5% Sodium Chloride 0.45% IV CONT 50 mls/hr .Q20H [facility] Administration Ceftriaxone Sodium 1 gm/ 50 mls @ 100 mls/hr 09/01/25 16:00 09/02/25 15:34 Sodium Chloride IVPB Infused Q24H [facility] Infusion Azithromycin 500 mg/ Sodium 250 mls @ 250 mls/hr 09/01/25 17:00 09/02/25 19:13 Chloride IVPB Infused Q24H [facility] Infusion Cefazolin Sodium 2 gm/ Sodium 50 mls @ 100 mls/hr 09/02/25 16:00 09/03/25 00:55 Chloride IVPB 09/03/25 08:29 Infused Q8H [facility] Infusion Ibuprofen 800 mg in 200 mls @ 400 mls/hr 09/02/25 10:30 09/02/25 18:04 Caldolor 800 Mg/200 Ml IVPB Infused Q6H PRN Infusion Breakthrough Pain Rated 1-3 or NPO Lisinopril 40 mg 09/01/25 09:00 09/02/25 14:47 Lisinopril 20 Mg Tablet PO 40 mg DAILY [facility] Administration Memantine 5 mg 08/31/25 23:00 09/02/25 21:17 Memantine 5 Mg Tablet PO 5 mg Q12HR [facility] Administration Metoprolol Tartrate 25 mg 08/31/25 23:00 09/02/25 21:17 Metoprolol Tartrate 25 Mg Tablet PO 25 mg Q12HR [facility] Administration Metoprolol Tartrate 2.5 mg 09/01/25 15:55 09/03/25 05:42 Metoprolol Tartrate Inj 5 Mg/5 Ml Vial IV PUSH Not Given Q6HR [facility] Multivitamins Therapeutic 1 tablet 09/01/25 09:00 09/02/25 14:46 Multivitamins Therapeutic Tab (*Bkc) PO 1 tablet DAILY [facility] Administration Naloxone HCl 0.1 mg 09/02/25 10:30 Naloxone Hcl 0.4 Mg/Ml Vial IV PUSH Q2M PRN Opiate Reversal Olanzapine 5 mg 09/02/25 21:00 09/02/25 21:17 Olanzapine Odt Dispertab 5 Mg PO 5 mg HS [facility] Administration Ondansetron HCl 4 mg 09/02/25 10:30 Ondansetron Inj 4 Mg/2 Ml Vial IV PUSH Q4H PRN Nausea And Vomiting Oxycodone/Acetaminophen 1 tablet 09/02/25 10:30 Oxycodone/Acetaminophen (*Crx) 5-325 Mg Tablet PO Q4H PRN Pain Rated 4-6 Oxycodone/Acetaminophen 1 tab 09/02/25 10:30 Oxycodone/Acetaminophen (*Crx) 10-325 Mg Tablet PO Q6H PRN Pain Rated 7-10 Perflutren Lipid Microsphere 0 ml 09/02/25 15:24 Perflutren Lipid Microspheres 1.5 Ml Vial Diluted To 10 Ml Total Volume IV PUSH 09/05/25 15:24 ONCE PRN adequate visualization Protocol Polyethylene Glycol 17 gm 09/03/25 09:00 Polyethylene Glycol 3350 17 Gm Powd.Pack PO QAM [facility] Senna/Docusate Sodium 2 tab 09/02/25 17:00 09/02/25 16:40 Senna/Docusate Sodium Tablet PO Not Given BID [facility] Sodium Bicarbonate 650 mg 08/31/25 23:00 09/02/25 16:39 Sodium Bicarbonate Tab 650 Mg Tablet PO Not Given BID [facility] Radiology Results: ITS Impressions Hip/Pelvis X-Ray 08/31/25 10:39 Impression: Fractures detailed above. Sclerotic lesion, there is a prior history of neoplasm metastasis is not excluded. Nuclear medicine bone scan suggested Venous Doppler Study 08/31/25 10:39 IMPRESSION: 1. No left leg DVT. Hip CT 08/31/25 12:02 IMPRESSION: 1. Mildly impacted subcapital femoral neck fracture. 2. Intertrochanteric intramedullary benign-appearing mass possibly representing chondroid lesion, enchondroma or ABC. The fracture does not directly involve this lesion, however the superior margin of the lesion is within about 2 cm of the fracture. Chest X-Ray 09/01/25 14:46 Impression: Probable early pneumonia Labs Labs: Laboratory Results - last 24 hr 09/03/25 04:50 WBC 7.5 RBC 3.55 L Hgb 11.3 L Hct 35.6 L MCV 100.3 H MCH 31.8 MCHC 31.7 L RDW 13.3 Plt Count 220 MPV 10.1 Immature Gran % (Auto) 0.5 Neut % (Auto) 70.0 Lymph % (Auto) 14.7 L [place] % (Auto) 9.6 H Eos % (Auto) 4.8 H Baso % (Auto) 0.4 Lymph # (Auto) 1.10 [place] # (Auto) 0.7 H Eos # (Auto) 0.4 H Baso # (Auto) 0.0 Abs Immat Gran (auto) 0.04 H Absolute Neuts (auto) 5.2 Absolute Nucleated RBC 0.000 Nucleated RBC % 0.0 Sodium 141 Potassium 3.7 Chloride 112 H Carbon Dioxide 22 Anion Gap 7 BUN 32 H Creatinine 2.31 H Estim Creat Clear Calc 23 Estimated GFR 27 L Glucose 152 H Calcium 8.6 Magnesium 2.6 H Total Bilirubin 0.6 AST 27 ALT 13 Alkaline Phosphatase 67 Total Protein 5.6 L Albumin 3.0 L Hospitalist MIPS Advance Care Plan I have confirmed that the patient's Advanced Care Plan is present, code status is documented, or surrogate decision maker is listed in patient medical record.: Yes Medication Reconciliation I have utilized all available resources to obtain, update and review the patients current medications (includes all prescriptions, OTC, herbals, cannabis, and nutritional supplements).: Yes
[2025-09-03] MEDS: FAMOTIDINE 20 MG TABLET PO ×2 (08:13→20:51)
[2025-09-03] MEDS: FERROUS SULFATE 325 MG TABLET PO (08:13)
[2025-09-03] MEDS: ASPIRIN 81 MG ENTERIC TABLET PO (08:13)
[2025-09-03] MEDS: METOPROLOL TARTRATE 25 MG TABLET PO ×2 (08:13→20:50)
[2025-09-03] MEDS: MULTIVITAMINS THERAPEUTIC TAB (*BKC) 1 TABLET PO (08:13)
[2025-09-03] MEDS: SODIUM BICARBONATE TAB 650 MG TABLET PO ×2 (08:13→16:02)
[2025-09-03] MEDS: FUROSEMIDE 20 MG TABLET PO (08:14)
[2025-09-03] MEDS: MEMANTINE 5 MG TABLET PO ×2 (08:14→20:50)
[2025-09-03] MEDS: ATORVASTATIN 40 MG TABLET 80 MG PO (08:14)
[2025-09-03] MEDS: ENOXAPARIN 30 MG/0.3 ML SYRINGE SUB-Q (08:15)
--- NOTE | 2025-09-03 09:37 | P.PNAN_ITS ---
Anes - Prog Note Post-Op Date/Time: 09/03/25 09:37 Cardiovascular status: normal Respiratory status: normal Airway patency: baseline Mental status: baseline Post-Op hydration status: normal Vital Signs: Last Vital Signs Temp 97.6 F 09/03/25 07:53 Pulse 74 09/03/25 08:13 Resp 18 09/03/25 07:53 BP 163/70 H 09/03/25 07:53 Pulse Ox 100 09/03/25 07:53 O2 Del Method Room Air 09/02/25 20:00 O2 Flow Rate 6 09/02/25 09:40 Pain Score (VAS): 0/10 I/O: Intake & Output 09/02/25 09/03/25 09/03/25 23:59 07:59 15:59 Intake Total 900 50 547.5 Output Total 300 550 Balance 600 -500 547.5 Laboratory Tests 09/03/25 04:50 09/03/25 04:50 09/03/25 04:50 WBC 7.5 RBC 3.55 L Hgb 11.3 L Hct 35.6 L MCV 100.3 H MCH 31.8 MCHC 31.7 L RDW 13.3 Plt Count 220 MPV 10.1 Immature Gran % (Auto) 0.5 Neut % (Auto) 70.0 Lymph % (Auto) 14.7 L [place] % (Auto) 9.6 H Eos % (Auto) 4.8 H Baso % (Auto) 0.4 Lymph # (Auto) 1.10 [place] # (Auto) 0.7 H Eos # (Auto) 0.4 H Baso # (Auto) 0.0 Abs Immat Gran (auto) 0.04 H Absolute Neuts (auto) 5.2 Absolute Nucleated RBC 0.000 Nucleated RBC % 0.0 Sodium 141 Potassium 3.7 Chloride 112 H Carbon Dioxide 22 Anion Gap 7 BUN 32 H Creatinine 2.31 H Estim Creat Clear Calc 23 Estimated GFR 27 L Glucose 152 H Calcium 8.6 Magnesium 2.6 H Total Bilirubin 0.6 AST 27 ALT 13 Alkaline Phosphatase 67 Total Protein 5.6 L Albumin 3.0 L Post-procedural complaints: none Patient Feedback: Patient satisfied with anesthetic care.
--- NOTE | 2025-09-03 10:22 | PM.PNORT ---
Progress Note: A&P Assessment and Plan (1) Closed subcapital fracture of neck of left femur: Qualifiers: Encounter type: subsequent encounter Fracture healing: with routine healing Qualified Code(s): S72.012D - Unspecified intracapsular fracture of left femur, subsequent encounter for closed fracture with routine healing Code(s): S72.012A - Unspecified intracapsular fracture of left femur, initial encounter for closed fracture Status: Acute Assessment and Plan: POD #1 : Left Hip CRPP Continue PT/OT. NWB. Walker. HIGH FALL RISK. Continue pain control. Ice Hip. Protect skin. DVT prophylaxis with Lovenox. SCDs. Incentive Spirometry Use reviewed. Monitor Dressing. Change prior to discharge. Bowel Regimen. Dispo: SNF/Memory Care pending progress with PT/OT and medical stability. (2) Dementia: Code(s): F03.90 - Unspecified dementia, unspecified severity, without behavioral disturbance, psychotic disturbance, mood disturbance, and anxiety Status: Chronic Plan Reviewed history, exam, radiographs and current labs with attending MD and covering surgeon, Dr. Aparicio, who agrees with current plan as indicated above. No further recommendations from Dr. Aparicio at this time. Subjective Subjective Date/Time Seen: 09/03/25 0830 Interval history: POD #1 CRPP Left Hip Patient awake/alert. Confused with dementia at baseline. Working with PT at time of exam. Review of Systems Review of Systems: All systems reviewed & are unremarkable except as noted in HPI and below Constitutional: Constitutional: Denies chills, Denies fatigue, Denies fever(s), Denies night sweats and Denies weakness Cardiovascular: Cardiovascular: Denies chest pain, Denies lightheadedness, Denies palpitations and Denies dyspnea Respiratory: Respiratory: Denies cough, Denies dyspnea and Denies wheezing Gastrointestinal: Gastrointestinal: Denies abdominal pain, Denies diarrhea, Denies nausea and Denies vomiting Musculoskeletal: Musculoskeletal: Reports arthralgias (left hip ), Reports joint swelling (left hip ) and Denies numbness Neurologic: Denies numbness and Denies weakness Endocrine: Endocrine: Denies fatigue and Denies palpitations Allergic/Immunologic: Allergic/Immunologic: Denies wheezing Exam Const: General: comfortable and no acute distress Orientation/consciousness: patient oriented x3 Limitations: no limitations Resp: Effort & Inspection: normal respiratory effort Cardio: Rate: regular rate Rhythm: regular rhythm GI: Inspection: non-distended Skin: General skin exam: normal color and wounds noted (incision left hip C/D/I ) Wounds: wounds noted (incision left hip C/D/I ) Neuro: General: patient oriented x3 Extrem: Left lower extremity: hip/thigh Details: tenderness Location: of the hip Location: laterally and anteriorly, swelling (thigh soft ) Location: of the hip (lateral. ), abnormal ROM (limitations with internal/external rotation and flexion/extension due to recent surgical intervention ) and other (incision lateral hip c/d/i. ), knee Details: normal to inspection and normal ROM; no tenderness and no swelling, lower leg (Negative Reba's Sign ) Details: no edema, ankle (+ankle dorsiflexion/plantarflexion ) Details: normal to inspection, no edema and normal ROM; no tenderness, no swelling and no warmth and foot Details: normal capillary refill, toes with normal ROM, vascular exam Details: dorsalis pedis pulse present and motor-sensory exam light-touch normal in all toes; no tenderness, no ecchymosis and no crepitus Psych: Mental Status: mental status grossly normal Affect: normal affect Objective Data Vital Signs Vital Signs: Vital Signs - 24 hr 09/02/25 10:25 09/02/25 10:45 09/02/25 11:13 Temperature 36.2 C L 36.6 C 36.7 C Pulse Rate 81 73 76 Respiratory Rate 16 16 16 Blood Pressure 180/90 H 167/71 H 162/70 H Pulse Oximetry 100 97 97 Oxygen Delivery Room Air 09/02/25 12:00 09/02/25 12:15 09/02/25 12:17 Temperature 36.6 C Pulse Rate 85 Respiratory Rate 16 Blood Pressure 147/85 H Pulse Oximetry 98 Oxygen Delivery Room Air Room Air 09/02/25 14:46 09/02/25 15:00 09/02/25 15:23 Temperature Pulse Rate 85 85 107 H Respiratory Rate 18 Blood Pressure 138/63 Pulse Oximetry 95 Oxygen Delivery 09/02/25 18:00 09/02/25 20:00 09/02/25 20:00 Temperature Pulse Rate 71 67 Respiratory Rate Blood Pressure Pulse Oximetry Oxygen Delivery Room Air 09/02/25 20:15 09/02/25 21:17 09/03/25 00:00 Temperature 36.3 C L Pulse Rate 68 71 59 L Respiratory Rate 12 Blood Pressure 138/62 Pulse Oximetry 93 Oxygen Delivery 09/03/25 00:15 09/03/25 00:55 09/03/25 04:00 Temperature 35.9 C L Pulse Rate 58 L 44 L 52 L Respiratory Rate 14 Blood Pressure 121/52 L Pulse Oximetry 95 Oxygen Delivery 09/03/25 04:15 09/03/25 07:53 09/03/25 08:13 Temperature 36.5 C 36.4 C Pulse Rate 58 L 61 74 Respiratory Rate 16 18 Blood Pressure 186/84 H 163/70 H Pulse Oximetry 97 100 Oxygen Delivery Intake/Output Intake/Output: Intake & Output 08/31/25 09/01/25 09/02/25 09/03/25 23:59 23:59 23:59 23:59 Intake Total 972 366 6611 647.5 Output Total 028 299 9518 550 Balance -10 -550 340 97.5 Meds/Results Medications: Active Medications Generic Name Dose Route Start Last Admin Trade Name Freq PRN Reason Stop Dose Admin Acetaminophen 500 mg 09/02/25 10:30 Acetaminophen 500 Mg Tablet PO Q6H PRN Pain Amlodipine Besylate 10 mg 09/01/25 09:00 09/03/25 08:14 Amlodipine Besylate 10 Mg Tablet PO 10 mg DAILY [facility] Administration Aspirin 81 mg 09/03/25 09:00 09/03/25 08:13 Aspirin 81 Mg Enteric Tablet PO 81 mg DAILY [facility] Administration Atorvastatin Calcium 80 mg 09/01/25 09:00 09/03/25 08:14 Atorvastatin 40 Mg Tablet PO 80 mg DAILY [facility] Administration Diazepam 5 mg 09/02/25 10:30 09/02/25 14:46 Diazepam (*Crx) 5 Mg Tablet PO 5 mg Q8H PRN Administration Muscle Spasm Enoxaparin Sodium 30 mg 09/03/25 09:00 09/03/25 08:15 Enoxaparin 30 Mg/0.3 Ml Syringe SUB-Q 30 mg DAILY [facility] Administration Famotidine 20 mg 09/02/25 21:00 09/03/25 08:13 Famotidine 20 Mg Tablet PO 20 mg Q12HR [facility] Administration Ferrous Sulfate 325 mg 09/01/25 09:00 09/03/25 08:13 Ferrous Sulfate 325 Mg Tablet PO 325 mg DAILY [facility] Administration Furosemide 20 mg 09/01/25 09:00 09/03/25 08:14 Furosemide 20 Mg Tablet PO 20 mg DAILY [facility] Administration Hydromorphone HCl 1 mg 09/02/25 10:30 09/02/25 16:43 Hydromorphone Hcl Inj (*Crx) 1 Mg/Ml Syr IV PUSH 1 mg Q2H PRN Administration Breakthrough Pain Rated 7-10 or NPO Hydromorphone HCl 0.5 mg 09/02/25 10:30 Hydromorphone Hcl Inj (*Crx) 1 Mg/Ml Syr IV PUSH Q2H PRN Breakthrough Pain Rated 4-6 or NPO Hydroxyzine Pamoate 50 mg 09/02/25 10:30 09/02/25 14:46 Hydroxyzine Pamoate 25 Mg Capsule PO 50 mg Q4H PRN Administration Itching Dextrose/Sodium Chloride 1,000 mls @ 50 mls/hr 09/01/25 14:00 09/03/25 08:10 Dextrose 5% Sodium Chloride 0.45% IV CONT 0 mls/hr .Q20H [facility] Infusion Ceftriaxone Sodium 1 gm/ 50 mls @ 100 mls/hr 09/01/25 16:00 09/02/25 15:34 Sodium Chloride IVPB Infused Q24H [facility] Infusion Azithromycin 500 mg/ Sodium 250 mls @ 250 mls/hr 09/01/25 17:00 09/02/25 19:13 Chloride IVPB Infused Q24H [facility] Infusion Ibuprofen 800 mg in 200 mls @ 400 mls/hr 09/02/25 10:30 09/02/25 18:04 Caldolor 800 Mg/200 Ml IVPB Infused Q6H PRN Infusion Breakthrough Pain Rated 1-3 or NPO Lisinopril 40 mg 09/01/25 09:00 09/03/25 08:13 Lisinopril 20 Mg Tablet PO 40 mg DAILY [facility] Administration Memantine 5 mg 08/31/25 23:00 09/03/25 08:14 Memantine 5 Mg Tablet PO 5 mg Q12HR [facility] Administration Metoprolol Tartrate 25 mg 08/31/25 23:00 09/03/25 08:13 Metoprolol Tartrate 25 Mg Tablet PO 25 mg Q12HR [facility] Administration Metoprolol Tartrate 2.5 mg 09/01/25 15:55 09/03/25 05:42 Metoprolol Tartrate Inj 5 Mg/5 Ml Vial IV PUSH Not Given Q6HR [facility] Multivitamins Therapeutic 1 tablet 09/01/25 09:00 09/03/25 08:13 Multivitamins Therapeutic Tab (*Bkc) PO 1 tablet DAILY [facility] Administration Naloxone HCl 0.1 mg 09/02/25 10:30 Naloxone Hcl 0.4 Mg/Ml Vial IV PUSH Q2M PRN Opiate Reversal Olanzapine 5 mg 09/02/25 21:00 09/02/25 21:17 Olanzapine Odt Dispertab 5 Mg PO 5 mg HS [facility] Administration Ondansetron HCl 4 mg 09/02/25 10:30 Ondansetron Inj 4 Mg/2 Ml Vial IV PUSH Q4H PRN Nausea And Vomiting Oxycodone/Acetaminophen 1 tablet 09/02/25 10:30 Oxycodone/Acetaminophen (*Crx) 5-325 Mg Tablet PO Q4H PRN Pain Rated 4-6 Oxycodone/Acetaminophen 1 tab 09/02/25 10:30 Oxycodone/Acetaminophen (*Crx) 10-325 Mg Tablet PO Q6H PRN Pain Rated 7-10 Perflutren Lipid Microsphere 0 ml 09/02/25 15:24 Perflutren Lipid Microspheres 1.5 Ml Vial Diluted To 10 Ml Total Volume IV PUSH 09/05/25 15:24 ONCE PRN adequate visualization Protocol Polyethylene Glycol 17 gm 09/03/25 09:00 09/03/25 08:15 Polyethylene Glycol 3350 17 Gm Powd.Pack PO Not Given QAM [facility] Senna/Docusate Sodium 2 tab 09/02/25 17:00 09/03/25 08:15 Senna/Docusate Sodium Tablet PO Not Given BID [facility] Sodium Bicarbonate 650 mg 08/31/25 23:00 09/03/25 08:13 Sodium Bicarbonate Tab 650 Mg Tablet PO 650 mg BID [facility] Administration Radiology Results: ITS Impressions Hip/Pelvis X-Ray 08/31/25 10:39 Impression: Fractures detailed above. Sclerotic lesion, there is a prior history of neoplasm metastasis is not excluded. Nuclear medicine bone scan suggested Venous Doppler Study 08/31/25 10:39 IMPRESSION: 1. No left leg DVT. Hip CT 08/31/25 12:02 IMPRESSION: 1. Mildly impacted subcapital femoral neck fracture. 2. Intertrochanteric intramedullary benign-appearing mass possibly representing chondroid lesion, enchondroma or ABC. The fracture does not directly involve this lesion, however the superior margin of the lesion is within about 2 cm of the fracture. Chest X-Ray 09/01/25 14:46 Impression: Probable early pneumonia Labs Labs: Laboratory Results - last 24 hr 09/03/25 04:50 WBC 7.5 RBC 3.55 L Hgb 11.3 L Hct 35.6 L MCV 100.3 H MCH 31.8 MCHC 31.7 L RDW 13.3 Plt Count 220 MPV 10.1 Immature Gran % (Auto) 0.5 Neut % (Auto) 70.0 Lymph % (Auto) 14.7 L [place] % (Auto) 9.6 H Eos % (Auto) 4.8 H Baso % (Auto) 0.4 Lymph # (Auto) 1.10 [place] # (Auto) 0.7 H Eos # (Auto) 0.4 H Baso # (Auto) 0.0 Abs Immat Gran (auto) 0.04 H Absolute Neuts (auto) 5.2 Absolute Nucleated RBC 0.000 Nucleated RBC % 0.0 Sodium 141 Potassium 3.7 Chloride 112 H Carbon Dioxide 22 Anion Gap 7 BUN 32 H Creatinine 2.31 H Estim Creat Clear Calc 23 Estimated GFR 27 L Glucose 152 H Calcium 8.6 Magnesium 2.6 H Total Bilirubin 0.6 AST 27 ALT 13 Alkaline Phosphatase 67 Total Protein 5.6 L Albumin 3.0 L
[2025-09-03] MEDS: PERFLUTREN LIPID MICROSPHERES 1.5 ML VIAL DILUTED TO 10 ML TOTAL VOLUME IV PUSH (10:36)
--- NOTE | 2025-09-03 10:36 | IVDEFINITY ---
Prior to administration of IV Definity the patient was educated on the risks and benefits of the imaging enhancing agent including potential adverse side effects. The patient verbalized understanding. Allergies were verified. No exclusion criteria were identified and at least one of the following inclusion criteria were met: 1) physician request, 2) patient technically difficult to image (per the [place] [employer] guidelines of two or more segments not discernable within the apical view), or 3) questionable left ventricular function. ?
[2025-09-03] MEDS: METOPROLOL TARTRATE INJ 5 MG/5 ML VIAL 2.5 MG IV PUSH ×3 (12:12→23:19)
[2025-09-03] MEDS: cefTRIAXone 1 GM in SODIUM CHLORIDE 0.9% IV 50 ML 100 ML IVPB (15:18)
[2025-09-03] MEDS: AZITHROMYCIN IV 500 MG in SODIUM CHLORIDE 0.9% IV 250 ML IVPB (16:01)
[2025-09-03] MEDS: HYDROmorphone HCL INJ (*CRX) 1 MG/ML SYR IV PUSH (20:47)
[2025-09-03] MEDS: OLANZapine ODT DISPERTAB 5 MG PO (20:50)
[2025-09-03] MEDS: diazePAM (*CRX) 5 MG TABLET PO (20:50)
[2025-09-04 05:28] LABS: Hematocrit 37.3 % (42.0-52.0); Hemoglobin 11.8 g/dL (14.0-18.0); Mean Corpuscular HGB Conc 31.6 g/dl (32-36); Mean Corpuscular Hemoglobin 31.2 pg (26-34); Mean Corpuscular Volume 98.7 fl (80-100); Platelet Count Result 245 k/mm3 (150-375); Red Blood Count 3.78 M/mm3 (4.6-6.20); White Blood Count 8.3 K/mm3 (4.5-10.0)
[2025-09-04 05:39] VITALS: PULSE 74
[2025-09-04] MEDS: METOPROLOL TARTRATE INJ 5 MG/5 ML VIAL 2.5 MG IV PUSH (05:39)
[2025-09-04 05:49] LABS: Alanine Aminotransferase 10 U/L (6-50); Albumin Level 3.6 g/dL (3.5-5.1); Alkaline Phosphatase 89 U/L (38-126); Anion Gap 10 mmol/L (4-12); Aspartate Amino Transferase 49 U/L (17-59); Bilirubin,Total 0.8 mg/dL (0.2-1.3); Blood Urea Nitrogen 31 mg/dL (9-20); Calcium 8.7 mg/dL (8.4-10.2); Carbon Dioxide 22 mmol/L (22-30); Chloride 110 mmol/L (98-107); Estimated CRCL calculation 22 ml/min; Estimated Glomerular Filt Rate 27; Glucose 132 mg/dL (65-110); Potassium 3.4 mmol/L (3.4-5.0); Sodium 142 mmol/L (137-145); Total Protein 6.6 g/dL (6.3-8.2)
[2025-09-04 08:55] VITALS: PULSE 74
[2025-09-04] MEDS: FAMOTIDINE 20 MG TABLET PO (08:55)
[2025-09-04] MEDS: METOPROLOL TARTRATE 25 MG TABLET PO (08:55)
[2025-09-04] MEDS: SODIUM BICARBONATE TAB 650 MG TABLET PO (08:55)
[2025-09-04] MEDS: MEMANTINE 5 MG TABLET PO (08:55)
[2025-09-04] MEDS: ASPIRIN 81 MG ENTERIC TABLET PO (08:56)
[2025-09-04] MEDS: ENOXAPARIN 30 MG/0.3 ML SYRINGE SUB-Q (08:56)
[2025-09-04] MEDS: ATORVASTATIN 40 MG TABLET 80 MG PO (08:56)
[2025-09-04] MEDS: FUROSEMIDE 20 MG TABLET PO (09:03)
--- NOTE | 2025-09-04 09:37 | P.PNOP_ITS ---
Progress Note: A&P Assessment and Plan (1) Closed subcapital fracture of neck of left femur: Qualifiers: Encounter type: subsequent encounter Fracture healing: with routine healing Qualified Code(s): S72.012D - Unspecified intracapsular fracture of left femur, subsequent encounter for closed fracture with routine healing Code(s): S72.012A - Unspecified intracapsular fracture of left femur, initial encounter for closed fracture Status: Acute Assessment and Plan: POD #2: Left Hip CRPP Continue PT/OT. NWB. Walker. HIGH FALL RISK. Continue pain control. Ice Hip. Protect skin. DVT prophylaxis with Lovenox. SCDs. Incentive Spirometry Use reviewed. Monitor Dressing. Change to Mepilex silver today. Bowel Regimen. Dispo: SNF/Memory Care when medically cleared. (2) Dementia: Code(s): F03.90 - Unspecified dementia, unspecified severity, without behavioral disturbance, psychotic disturbance, mood disturbance, and anxiety Status: Chronic Plan Reviewed history, exam, radiographs and current labs with attending MD and covering surgeon, Dr. Aparicio, who agrees with current plan as indicated above. No further recommendations from Dr. Aparicio at this time. Time Spent With Patient Time with patient: less than 15 minutes Subjective Subjective Date/Time Seen: 09/04/25 09:37 Interval history: POD #2 CRPP Left Hip Patient awake/alert. Confused with dementia at baseline. Sitting in bed. Denies pain. Review of Systems Review of Systems: All systems reviewed & are unremarkable except as noted in HPI and below Constitutional: Constitutional: Denies chills, Denies fatigue, Denies fever(s), Denies night sweats and Denies weakness Cardiovascular: Cardiovascular: Denies chest pain, Denies lightheadedness, Denies palpitations and Denies dyspnea Respiratory: Respiratory: Denies cough, Denies dyspnea and Denies wheezing Gastrointestinal: Gastrointestinal: Denies abdominal pain, Denies diarrhea, Denies nausea and Denies vomiting Musculoskeletal: Musculoskeletal: Reports arthralgias (left hip ), Reports joint swelling (left hip ) and Denies numbness Neurologic: Denies numbness and Denies weakness Endocrine: Endocrine: Denies fatigue and Denies palpitations Allergic/Immunologic: Allergic/Immunologic: Denies wheezing Exam Const: General: comfortable and no acute distress Orientation/consciousness: patient oriented x3 Limitations: no limitations Resp: Effort & Inspection: normal respiratory effort Cardio: Rate: regular rate Rhythm: regular rhythm GI: Inspection: non-distended Skin: General skin exam: normal color and wounds noted (incision left hip C/D/I ) Wounds: wounds noted (incision left hip C/D/I ) Neuro: General: patient oriented x3 Extrem: Left lower extremity: hip/thigh Details: tenderness Location: of the hip Location: laterally and anteriorly, swelling (thigh soft ) Location: of the hip (lateral. ), abnormal ROM (limitations with internal/external rotation and flexion/extension due to recent surgical intervention ) and other (incision lateral hip c/d/i. ), knee Details: normal to inspection and normal ROM; no tenderness and no swelling, lower leg (Negative Reba's Sign ) Details: no edema, ankle (+ankle dorsiflexion/plantarflexion ) Details: normal to inspection, no edema and normal ROM; no tenderness, no swelling and no warmth and foot Details: normal capillary refill, toes with normal ROM, vascular exam Details: dorsalis pedis pulse present and motor-sensory exam light-touch normal in all toes; no tenderness, no ecchymosis and no crepitus Psych: Mental Status: mental status grossly normal Affect: normal affect Objective Data Vital Signs Vital Signs: Vital Signs - 24 hr 09/03/25 12:03 09/03/25 12:12 09/03/25 12:15 Temperature Pulse Rate 79 67 67 Respiratory Rate Blood Pressure 169/67 H Pulse Oximetry 99 Oxygen Delivery 09/03/25 17:13 09/03/25 20:00 09/03/25 20:10 Temperature 37.2 C Pulse Rate 68 100 Respiratory Rate 20 Blood Pressure 177/70 H Pulse Oximetry 99 Oxygen Delivery Room Air 09/03/25 20:50 09/03/25 23:19 09/04/25 05:39 Temperature Pulse Rate 100 64 74 Respiratory Rate Blood Pressure Pulse Oximetry Oxygen Delivery 09/04/25 08:55 Temperature Pulse Rate 74 Respiratory Rate Blood Pressure Pulse Oximetry Oxygen Delivery Intake/Output Intake/Output: Intake & Output 09/01/25 09/02/25 09/03/25 09/04/25 23:59 23:59 23:59 23:59 Intake Total 300 2390 2561.6 437 Output Total 850 2050 1150 Balance -711 697 5795.6 437 Meds/Results Medications: Active Medications Generic Name Dose Route Start Last Admin Trade Name Freq PRN Reason Stop Dose Admin Acetaminophen 500 mg 09/02/25 10:30 Acetaminophen 500 Mg Tablet PO Q6H PRN Pain Amlodipine Besylate 10 mg 09/01/25 09:00 09/04/25 08:56 Amlodipine Besylate 10 Mg Tablet PO 10 mg DAILY ROSALIA Administration Aspirin 81 mg 09/03/25 09:00 09/04/25 08:56 Aspirin 81 Mg Enteric Tablet PO 81 mg DAILY ROSALIA Administration Atorvastatin Calcium 80 mg 09/01/25 09:00 09/04/25 08:56 Atorvastatin 40 Mg Tablet PO 80 mg DAILY ROSALIA Administration Diazepam 5 mg 09/02/25 10:30 09/03/25 20:50 Diazepam (*Crx) 5 Mg Tablet PO 5 mg Q8H PRN Administration Muscle Spasm Enoxaparin Sodium 30 mg 09/03/25 09:00 09/04/25 08:56 Enoxaparin 30 Mg/0.3 Ml Syringe SUB-Q 30 mg DAILY ROSALIA Administration Famotidine 20 mg 09/02/25 21:00 09/04/25 08:55 Famotidine 20 Mg Tablet PO 20 mg Q12HR ROSALIA Administration Ferrous Sulfate 325 mg 09/01/25 09:00 09/04/25 08:57 Ferrous Sulfate 325 Mg Tablet PO Not Given DAILY [facility] Furosemide 20 mg 09/01/25 09:00 09/04/25 09:03 Furosemide 20 Mg Tablet PO 20 mg DAILY ROSALIA Administration Hydromorphone HCl 1 mg 09/02/25 10:30 09/03/25 20:47 Hydromorphone Hcl Inj (*Crx) 1 Mg/Ml Syr IV PUSH 1 mg Q2H PRN Administration Breakthrough Pain Rated 7-10 or NPO Hydromorphone HCl 0.5 mg 09/02/25 10:30 Hydromorphone Hcl Inj (*Crx) 1 Mg/Ml Syr IV PUSH Q2H PRN Breakthrough Pain Rated 4-6 or NPO Hydroxyzine Pamoate 50 mg 09/02/25 10:30 09/03/25 22:39 Hydroxyzine Pamoate 25 Mg Capsule PO 50 mg Q4H PRN Administration Itching Ceftriaxone Sodium 1 gm/ 50 mls @ 100 mls/hr 09/01/25 16:00 09/03/25 15:48 Sodium Chloride IVPB Infused Q24H ROSALIA Infusion Azithromycin 500 mg/ Sodium 250 mls @ 250 mls/hr 09/01/25 17:00 09/03/25 17:00 Chloride IVPB Infused Q24H ROSALIA Infusion Ibuprofen 800 mg in 200 mls @ 400 mls/hr 09/02/25 10:30 09/02/25 18:04 Caldolor 800 Mg/200 Ml IVPB Infused Q6H PRN Infusion Breakthrough Pain Rated 1-3 or NPO Lisinopril 40 mg 09/01/25 09:00 09/04/25 08:56 Lisinopril 20 Mg Tablet PO 40 mg DAILY ROSALIA Administration Memantine 5 mg 08/31/25 23:00 09/04/25 08:55 Memantine 5 Mg Tablet PO 5 mg Q12HR ROSALIA Administration Metoprolol Tartrate 25 mg 08/31/25 23:00 09/04/25 08:55 Metoprolol Tartrate 25 Mg Tablet PO 25 mg Q12HR ROSALIA Administration Metoprolol Tartrate 2.5 mg 09/01/25 15:55 09/04/25 05:39 Metoprolol Tartrate Inj 5 Mg/5 Ml Vial IV PUSH 2.5 mg Q6HR ROSALIA Administration Multivitamins Therapeutic 1 tablet 09/01/25 09:00 09/04/25 08:58 Multivitamins Therapeutic Tab (*Bkc) PO Not Given DAILY ROSALIA Naloxone HCl 0.1 mg 09/02/25 10:30 Naloxone Hcl 0.4 Mg/Ml Vial IV PUSH Q2M PRN Opiate Reversal Olanzapine 5 mg 09/02/25 21:00 09/03/25 20:50 Olanzapine Odt Dispertab 5 Mg PO 5 mg HS ROSALIA Administration Ondansetron HCl 4 mg 09/02/25 10:30 Ondansetron Inj 4 Mg/2 Ml Vial IV PUSH Q4H PRN Nausea And Vomiting Oxycodone/Acetaminophen 1 tablet 09/02/25 10:30 Oxycodone/Acetaminophen (*Crx) 5-325 Mg Tablet PO Q4H PRN Pain Rated 4-6 Oxycodone/Acetaminophen 1 tab 09/02/25 10:30 Oxycodone/Acetaminophen (*Crx) 10-325 Mg Tablet PO Q6H PRN Pain Rated 7-10 Polyethylene Glycol 17 gm 09/03/25 09:00 09/04/25 08:57 Polyethylene Glycol 3350 17 Gm Powd.Pack PO Not Given QAM ROSALIA Senna/Docusate Sodium 2 tab 09/02/25 17:00 09/04/25 08:57 Senna/Docusate Sodium Tablet PO Not Given BID ROSALIA Sodium Bicarbonate 650 mg 08/31/25 23:00 09/04/25 08:55 Sodium Bicarbonate Tab 650 Mg Tablet PO 650 mg BID ROSALIA Administration Radiology Results: ITS Impressions Hip/Pelvis X-Ray 08/31/25 10:39 Impression: Fractures detailed above. Sclerotic lesion, there is a prior history of neoplasm metastasis is not excluded. Nuclear medicine bone scan suggested Venous Doppler Study 08/31/25 10:39 IMPRESSION: 1. No left leg DVT. Hip CT 08/31/25 12:02 IMPRESSION: 1. Mildly impacted subcapital femoral neck fracture. 2. Intertrochanteric intramedullary benign-appearing mass possibly representing chondroid lesion, enchondroma or ABC. The fracture does not directly involve this lesion, however the superior margin of the lesion is within about 2 cm of the fracture. Chest X-Ray 09/01/25 14:46 Impression: Probable early pneumonia Labs Labs: Laboratory Results - last 24 hr 09/04/25 04:53 WBC 8.3 RBC 3.78 L Hgb 11.8 L Hct 37.3 L MCV 98.7 MCH 31.2 MCHC 31.6 L RDW 13.2 Plt Count 245 MPV 10.4 Sodium 142 Potassium 3.4 Chloride 110 H Carbon Dioxide 22 Anion Gap 10 BUN 31 H Creatinine 2.34 H Estim Creat Clear Calc 22 Estimated GFR 27 L Glucose 132 H Calcium 8.7 Total Bilirubin 0.8 AST 49 ALT 10 Alkaline Phosphatase 89 Total Protein 6.6 Albumin 3.6
[2025-09-04 09:40] VITALS: RESP 20; O2SAT 99
--- NOTE | 2025-09-04 10:40 | P.DS_ITS ---
DS: Admitting Diagnosis Discharge Date 09/04/2025 Admitting Diagnosis Left leg pain DS: Discharge Diagnosis Discharge Diagnosis (1) Closed subcapital fracture of neck of left femur: Qualifiers: Encounter type: subsequent encounter Fracture healing: with routine healing Qualified Code(s): S72.012D - Unspecified intracapsular fracture of left femur, subsequent encounter for closed fracture with routine healing Code(s): S72.012A - Unspecified intracapsular fracture of left femur, initial encounter for closed fracture Status: Acute DS: Summary Hospital Course Hospital Course: Summary: Mr. Bailey, an 84-year-old male with dementia, CHF, hypertension, hyperlipidemia, and CKD4, was admitted from [facility] after presenting with left upper leg pain. He was found to have a nondisplaced subcapital femoral neck fracture with a nearby benign-appearing sclerotic femoral lesion. He underwent successful percutaneous pinning (CRPP) of the left hip. His hospital course was complicated by delirium (Lewy body dementia), mild anemia, CKD4, and transient post-op confusion. He was managed with pain control, DVT prophylaxis, and supportive care. He is planned for discharge to SNF/memory care for rehabilitation and ongoing management. Problem Hospital Course & Interventions Status/Discharge Plan Left femoral neck fracture Percutaneous pinning (CRPP) on 09/02/25. No surgical complications. NWB, walker, PT/OT, high fall risk precautions. POD#2, routine healing. Continue PT/OT, NWB, walker. Discharge to SNF/memory care. Dementia (Lewy body) Baseline confusion, worsened post-op. Hallucinations managed with olanzapine, memantine. Sitter as needed. Continue memantine, olanzapine. SNF/memory care for supervision. CHF No acute exacerbation. Continue furosemide. Echo: normal EF, mild diastolic dysfunction, mild pulmonary HTN. Continue furosemide, monitor volume status. CKD4 Baseline creatinine 2.3?2.7, GFR 22?27. Avoid nephrotoxins. Adjusted enoxaparin dosing. Continue CKD precautions, monitor renal function. Hypertension BP controlled on amlodipine, lisinopril, metoprolol. Continue home regimen. Hyperlipidemia Continue atorvastatin. Continue. Mild anemia Hgb stable 10?11.8, no transfusion needed. Monitor. Delirium/hallucinations Managed with olanzapine, sitter, supportive care. Continue antipsychotic as needed. DVT prophylaxis Enoxaparin 30 mg daily (CKD dosing), SCDs. Continue until ambulatory. Other Early pneumonia/UTI treated with ceftriaxone, azithromycin. discharged on 5 days of Cefdinir, and 2 days more days of azithromycin Discharge Medications: * Amlodipine 10 mg daily * Lisinopril 40 mg daily * Metoprolol tartrate 25 mg BID * Furosemide 20 mg daily * Atorvastatin 80 mg daily * Aspirin 81 mg daily * Memantine 5 mg BID * Olanzapine 5 mg HS * Enoxaparin 30 mg daily (until ambulatory) * Acetaminophen, oxycodone/acetaminophen, hydromorphone PRN pain * Senna/docusate, polyethylene glycol PRN * Famotidine 20 mg BID * Sodium bicarbonate 650 mg BID * Multivitamin daily * Cefdinir 300mg bid x 5 days, Azithromycin 250mg x 2 days Follow-up/Disposition: * Discharge to SNF/memory care for rehab, supervision, and ongoing medical management. * Continue PT/OT, NWB left lower extremity, walker for mobility. * Monitor for delirium, falls, infection, and wound healing. * Outpatient follow-up with orthopedics and primary care as arranged. Time Spent with Patient Time attestation: Total time spent providing and/or coordinating discharge services: DS: Data Data Completed and Pending Labs on day of discharge: Labs from last 24 hours 09/04/25 04:53 WBC 8.3 RBC 3.78 L Hgb 11.8 L Hct 37.3 L MCV 98.7 MCH 31.2 MCHC 31.6 L RDW 13.2 Plt Count 245 MPV 10.4 Sodium 142 Potassium 3.4 Chloride 110 H Carbon Dioxide 22 Anion Gap 10 BUN 31 H Creatinine 2.34 H Estim Creat Clear Calc 22 Estimated GFR 27 L Glucose 132 H Calcium 8.7 Total Bilirubin 0.8 AST 49 ALT 10 Alkaline Phosphatase 89 Total Protein 6.6 Albumin 3.6 Discharge Plan Discharge Attending physician on discharge: Bernardino Booth Consulting providers: Kimo Aparicio Onyema Discharging Clinician: Bernardino Booth Anticipated Discharge Date/Time: 09/04/25 10:33 Patient Disposition: SNF Activity: may shower and no driving Diet: heart healthy Wound Care Instructions: follow printed instructions Discharge Instructions: Postoperative Hip Fracture Instructions Dr. Kimo Aparicio [phone] * Dressing to be changed daily with an island dressing beginning on post op day #2. May stop dressing changes at post op day #14. Joaquin to be removed on po st op day #14 * Weight bearing: Non-weight bearing. * You may shower with your dressing but do not submerge in a bath tub. * Do not drive or operate machinery until you are released by your surgeon. * Do not walk without a walker for any reason until you are released by your surgeon. * DVT prophylaxis x28 days post op. * Continue to apply ice to the hip intermittently for additional pain relief. Protect your skin with a towel or pillow case. * Continue to follow strict hip fracture precautions. * Please contact our office with any questions/concerns regarding your hip at [phone]. * Follow up appointment instructions indicated below. Patient Instructions: Antibiotic Form, Heart Failure (DC) Patient Language: [place] Stand Alone Forms: General Discharge Information Follow-up/Referrals: iKmo Aparicio MD [Physician, Orthopedics] - 10/18/25 10:00 am Discharge Medications: New oxycodone-acetaminophen 10-325 mg Tablet 1 tablet PO Q6H PRN (Reason: Pain Rated 7-10) 5 Days Qty: 12 0RF enoxaparin 30 mg/0.3 mL Syringe 30 mg subcut DAILY 28 Days Qty: 8.4 0RF cefdinir 300 mg capsule 300 mg PO Q12H 5 Days Qty: 10 0RF azithromycin 250 mg tablet 250 mg PO DAILY 2 Days Qty: 2 0RF Continued amlodipine 10 mg tablet 10 mg PO DAILY atorvastatin 80 mg tablet 80 mg PO DAILY lisinopril 40 mg tablet 40 mg PO DAILY memantine 10 mg tablet 5 mg PO BID metoprolol tartrate 25 mg tablet 25 mg PO BID sodium bicarbonate 650 mg tablet 650 mg PO BID furosemide 20 mg tablet 20 mg PO DAILY aspirin [Adult Aspirin Regimen] 81 mg tablet,delayed release (DR/EC) 81 mg PO DAILY acetaminophen 500 mg capsule 500 mg PO Q6H PRN (Reason: pain) ferrous sulfate [FeroSul] 325 mg (65 mg iron) tablet 325 mg PO DAILY multivitamin [Daily Multi-Vitamin] Tablet 1 tablet PO DAILY Date of admission: 09/01/25 10:36 Primary Care Provider: UNKNOWN,DOCTOR Admitting Provider: Jase Mcbride Attending physician on admission: Jase Mcbride Condition: Stable
== END 2025-09-04 12:35 | DRG 480 ==
LOC: ANHED 10:11 → ANH3MEDSUR 14:52 → ANH2MED 14:53
PROVIDERS: General Practice; Internal Medicine; Nurse Practitioner Adult Health; Orthopaedic Surgery; Admitting Provider Internal Medicine; Emergency Provider Emergency Medicine; Visit Provider Internal Medicine
PROC: 0QH734Z Insertion of Internal Fixation Device into Left Upper Femur, Percutaneous Approach (ICD-10-PCS; principal; 2025-09-02 08:00)
DX: S72.012A Unspecified intracapsular fracture of left femur, initial encounter for closed fracture (principal); J18.9 Pneumonia, unspecified organism; I13.0 Hypertensive heart and chronic kidney disease with heart failure and stage 1 through stage 4 chronic kidney disease, or unspecified chronic kidney disease; N18.4 Chronic kidney disease, stage 4 (severe); N39.0 Urinary tract infection, site not specified; F02.82 Dementia in other diseases classified elsewhere, unspecified severity, with psychotic disturbance; R41.0 Disorientation, unspecified; G31.83 Neurocognitive disorder with Lewy bodies; F03.90 Unspecified dementia, unspecified severity, without behavioral disturbance, psychotic disturbance, mood disturbance, and anxiety; I50.9 Heart failure, unspecified; E78.5 Hyperlipidemia, unspecified; D64.9 Anemia, unspecified; I48.91 Unspecified atrial fibrillation; W19.XXXA Unspecified fall, initial encounter
CPT/HCPCS: 36415; 71045; 73502; 73700; 80048; 80053; 81001; 83735; 85025; 85027; 87086; 93005; 93971; 96374; 97110; 97161; 97165; 97530; 99199; 99285; J0690; A9270; C1713; C8929; G0378; J0456; J0616; J0696; J1171; J1650; J1741; J2003; J2270; J2359; J2704; J3010; J3290; J7050; J7120; Q9957